=== PATIENT | male | born 2005 | race Caucasian/White ===

== ENCOUNTER 2024-12-13 11:59 | Outpatient (CLI) | payer BC, SELFPAY | END 2024-12-13 12:00 | disposition home or self-care (01) | LOC: AMB 12-15 12:28 | PROVIDERS: Visit Provider Family Medicine | DX: R45.851 Suicidal ideations (principal) | CPT/HCPCS: A0998 ==

== ENCOUNTER 2024-12-13 12:34 | Emergency (ER) | payer BC, SELFPAY ==
[2024-12-13 13:06] VITALS: BP 140/93; PULSE 135; RESP 16; TEMP 36.3; O2SAT 97; BMI 21.9
--- NOTE | 2024-12-13 13:45 | ED_ITS ---
HPI - General Adult General Chief complaint: Psychiatric Problem/Disorder <Gabi Hanna MD - Last Filed: 12/13/24 15:40> Stated complaint: Suicidal Ideation <Gabi Hanna MD - Last Filed: 12/13/24 15:40> Time Seen by Provider: 12/13/24 12:44 <Gabi Hanna MD - Last Filed: 12/13/24 15:40> Source: patient <Gabi Hanna MD - Last Filed: 12/13/24 15:40> Mode of arrival: ambulatory <Gabi Hanna MD - Last Filed: 12/13/24 15:40> Limitations: no limitations <Gabi Hanna MD - Last Filed: 12/13/24 15:40> History of Present Illness HPI narrative: 19-year-old male, history of anxiety, depression, PTSD, bipolar disorder presents to the ER with increasing depression, hopelessness and self-injurious behavior. Patient states that he grabbed some broken pottery and cut his arm and his flank. Patient states that he was having thoughts of suicide this morning, did not have a plan. Cutting himself was not an attempted suicide- while he was contemplating suicide, he knew that of scratches he sustained today would not be fatal. He has never had attempted suicide in the past. He does see a therapist once per week. He is on lamotrigine and Seroquel daily. Dose of lamotrigine was increased recently from 100 to 150 mg daily. He denies any recent new life stressors or events. States that he has been sleeping well, denies changes to his appetite. He denies any recreational drug use or alcohol use. Patient is not believe that he needs to be admitted for care but does seek extra help today. Patient does have a history of inpatient hospitalization x1 during COVID pandemic where he was in the ER for extended amount of time. This was a very traumatic experience for him. <Gabi Hanna MD - Last Filed: 12/13/24 15:40> Related Data Home medications: Home Medications ?Medication ?Instructions ?Recorded ?Confirmed diphenhydramine HCl 50 mg capsule 50 mg PO QHS PRN 12/13/24 12/13/24 (Unisom SleepGels) fexofenadine 180 mg tablet 180 mg PO DAILY 12/13/24 12/13/24 (Kathie Hives) fluticasone propionate 50 1 spray intranasal DAILY PRN 12/13/24 12/13/24 mcg/actuation nasal spray,suspension (24 Hour Allergy Relief) lamotrigine 150 mg tablet 150 mg PO DAILY 12/13/24 12/13/24 (Lamictal) pantoprazole 40 mg tablet,delayed 40 mg PO BID 12/13/24 12/13/24 release quetiapine 400 mg tablet,extended 400 mg PO QPM 12/13/24 12/13/24 release 24 hr (Seroquel XR) <Gabi Hanna MD - Last Filed: 12/13/24 15:40> Allergies/adverse reactions: Allergies Allergy/AdvReac Type Severity Reaction Status Date / Time Penicillins Allergy Mild Hives Verified 12/13/24 12:52 <Gabi Hanna MD - Last Filed: 12/13/24 15:40> Review of Systems Status of ROS: Reports: 10 or more systems reviewed and unremarkable except as noted in History and below <Gabi Hanna MD - Last Filed: 12/13/24 15:40> Exam Narrative: Exam Narrative: Well-nourished well-developed patient in no acute distress. Alert and oriented x3. Answers questions appropriately. Flat affect. Thoughts are goal oriented and rational. No tangential or magical thinking noted. Patient speaks in full sentences without needing to catch his breath. Makes little eye contact. HEENT: Normocephalic atraumatic. Pupils are equally round reactive to light. Extraocular muscles are intact. Conjunctivae are moist without any icterus noted. Moist mucous membranes. Cardiovascular: Heart is regular rate and rhythm S1 and S2 are present without any murmurs. Lungs: Clear to auscultation bilaterally no wheezes rhonchi or rales are appreciated. Patient takes deep breaths without any discomfort. Extremities: Bilateral lower extremities are without edema. Skin: Well perfused without any obvious rashes. Patient has multiple very superficial scratches to the anterior left forearm and the flank area. <Gabi Hanna MD - Last Filed: 12/13/24 15:40> Const: Vital Signs, click to edit/add: Vital Signs - 24 hr 12/13/24 13:06 12/13/24 18:38 Temperature 97.4 F L 98.1 F Pulse Rate [Pulse Oximeter] 135 H 119 H Respiratory Rate 16 18 Blood Pressure [Ri ght Upper Arm] 140/93 H 142/103 H Pulse Oximetry 97 99 Oxygen Delivery Me thod Room Air Room Air <Gabi Hanna MD - Last Filed: 12/13/24 15:40> Vital Signs, click to edit/add: Vital Signs - 24 hr 12/13/24 13:06 12/13/24 18:38 Temperature 97.4 F L 98.1 F Pulse Rate [Pulse Oximeter] 135 H 119 H Respiratory Rate 16 18 Blood Pressure [Ri ght Upper Arm] 140/93 H 142/103 H Pulse Oximetry 97 99 Oxygen Delivery Me thod Room Air Room Air <Umberto Ortiz DO - Last Filed: 12/13/24 18:42> Course Course ED Course: Blood work is unremarkable. Urine drug screen positive for tricyclic antidepressants. UA is unremarkable. Spoke to Dr. Fraire - school bus monitor [place] [facility] - she states that the patient was last seen a couple of weeks ago, next appo intment 12/25 with psychSully Montano is very concerned that the patient is very depressed and slow to answer/withdrawn. Dusty recommends inpatient as patient told them that his scratches today were a suicide attempt. <Gabi Hanna MD - Last Filed: 12/13/24 15:40> Vital Signs Vital signs: Initial Vital Signs Temperature 97.4 F L 12/13/24 13:06 Temperature Source Temporal Artery Scan 12/13/24 13:06 Pulse Rate 135 H 12/13/24 13:06 Respiratory Rate 16 12/13/24 13:06 Blood Pressure 140/93 H 12/13/24 13:06 Blood Pressure Mean 108 H 12/13/24 13:06 Blood Pressure Position Sitting 12/13/24 13:06 Pulse Oximetry 97 12/13/24 13:06 Oxygen Delivery Method Room Air 12/13/24 13:06 Vital Signs Temperature 97.4 F L 12/13/24 13:06 Pulse Rate 135 H 12/13/24 13:06 Respiratory Rate 16 12/13/24 13:06 Blood Pressure 140/93 H 12/13/24 13:06 Pulse Oximetry 97 12/13/24 13:06 Oxygen Delivery Method Room Air 12/13/24 13:06 Temperature 98.1 F 12/13/24 18:38 Pulse Rate 119 H 12/13/24 18:38 Respiratory Rate 18 12/13/24 18:38 Blood Pressure 142/103 H 12/13/24 18:38 Pulse Oximetry 99 12/13/24 18:38 Oxygen Delivery Method Room Air 12/13/24 18:38 <Gabi Hanna MD - Last Filed: 12/13/24 15:40> Initial Vital Signs Temperature 97.4 F L 12/13/24 13:06 Temperature Source Temporal Artery Scan 12/13/24 13:06 Pulse Rate 135 H 12/13/24 13:06 Respiratory Rate 16 12/13/24 13:06 Blood Pressure 140/93 H 12/13/24 13:06 Blood Pressure Mean 108 H 12/13/24 13:06 Blood Pressure Position Sitting 12/13/24 13:06 Pulse Oximetry 97 12/13/24 13:06 Oxygen Delivery Method Room Air 12/13/24 13:06 Vital Signs Temperature 97.4 F L 12/13/24 13:06 Pulse Rate 135 H 12/13/24 13:06 Respiratory Rate 16 12/13/24 13:06 Blood Pressure 140/93 H 12/13/24 13:06 Pulse Oximetry 97 12/13/24 13:06 Oxygen Delivery Method Room Air 12/13/24 13:06 Temperature 98.1 F 12/13/24 18:38 Pulse Rate 119 H 12/13/24 18:38 Respiratory Rate 18 12/13/24 18:38 Blood Pressure 142/103 H 12/13/24 18:38 Pulse Oximetry 99 12/13/24 18:38 Oxygen Delivery Method Room Air 12/13/24 18:38 <Umberto Ortiz DO - Last Filed: 12/13/24 18:42> Medical Decision Making MDM Narrative Medical decision making narrative: 19-year-old male with increased depression, bipolar disorder. Concerns about suicidal ideation and self-injurious behavior. Patient will be transferred to inpatient psychiatry unit. <Gabi Hanna MD - Last Filed: 12/13/24 15:40> patient was signed out to me pending placement in a mental health facility. He is accepted to [facility]. Him and his family are agreeable to this plan. He will be transferred. <Umberto Ortiz DO - Last Filed: 12/13/24 18:42> Lab Data Lab results reviewed: Yes I reviewed the patient's lab results <Gabi Hanna MD - Last Filed: 12/13/24 15:40> Labs: Lab Results 12/13/24 12/13/24 Range/Units 13:38 14:20 WBC 6.18 (4.50-11.00) K/uL RBC 5.28 (4.30-5.90) m/uL Hgb 16.0 (13.5-17.5) gm/dL Hct 46.5 (37.0-53.0) % MCV 88 (80-100) fL MCH 30 (26-34) pg MCHC 34 (32-36) gm/dL RDW Coeff of Melissa 11.4 L (11.5-15.5) % Plt Count 199 (140-440) K/uL Neut % (Auto) 66.6 (42.0-72.0) % Lymph % (Auto) 21.5 (20-44) % Beaver % (Auto) 11.0 (0.0-11.0) % Eos % (Auto) 0.5 (0.0-7.0) % Baso % (Auto) 0.2 (0.0-3.0) % Neut # (Auto) 4.12 (1.7-7.0) K/uL Lymph # (Auto) 1.33 (0.90-2.90) K/uL Beaver # (Auto) 0.70 (0.00-0.90) K/UL Eos # (Auto) 0.03 (0.00-0.50) K/uL Baso # (Auto) 0.01 (0.00-0.30) K/uL Abs Immat Gran (auto) 0.01 (0.00-0.30) K/uL Imm/Tot Granulo (auto) 0.2 % Sodium 139 (135-149) mmol/L Potassium 4.2 (3.6-5.1) mmol/L Chloride 104 (96-114) mmol/L Carbon Dioxide 25 (20-32) mmol/L Anion Gap 10 (7-15) mEq/L BUN 15 (5-24) mg/dL Creatinine 0.8 (0.5-1.5) mg/dL Estimated Creat Clear 147.31 Estimated GFR 129 ml/min Glucose 99 (60-115) mg/dL Lactate 0.8 (0.5-1.9) mmol/L Calcium 9.4 (8.4-10.6) mg/dL Total Bilirubin 0.8 (0.1-1.5) mg/dL Direct Bilirubin 0.3 (0.0-0.5) mg/dL AST 26 (12-35) U/L ALT 21 (4-50) U/L Alkaline Phosphatase 64 (40-150) U/L Total Protein 7.9 (6.0-8.3) g/dL Albumin 4.9 (3.3-5.0) g/dL Urine Color Yellow (Yellow) Urine Appearance Slightly Cloudy A (Clear) Urine pH 6.0 (5.0-8.5) Ur Specific Eighty Eight >= 1.030 (1.000-1.030) Urine Protein Trace A (Negative) Urine Glucose (UA) Negative (Negative) Urine Ketones Negative (Negative) Urine Blood Negative (Negative) Urine Nitrite Negative (Negative) Urine Bilirubin Negative (Negative) Urine Urobilinogen 0.2 (0.2-1.0) Ur Leukocyte Esterase Negative (Negative) Urine RBC 0-2 (0-2) Urine WBC 0-2 (0-5) Ur Squamous Epith Cells Few (None-Few) Urine Bacteria Few A (None) Urine Mucus Many A (None) Salicylates < 1.0 L (1.0-10) mg/dL Urine Opiates Screen Negative (Negative) Ur Oxycodone Screen Negative (Negative) Urine Methadone Screen Negative (Negative) Acetaminophen < 10.0 (10.0-30.0) ug/mL Ur Barbiturates Screen Negative (Negative) U Tricyclic Antidepress POSITIVE A (Negative) Ur Phencyclidine Scrn Negative (Negative) Ur Amphetamines Screen Negative (Negative) U Methamphetamines Scrn Negative (Negative) U Benzodiazepines Scrn Negative (Negative) Urine Cocaine Screen Negative (Negative) U Marijuana (THC) Screen Negative (Negative) Ur Drug Screen Comment See Note Ethyl Alcohol < 0.01 (0.01-0.03) % <Gabi Hanna MD - Last Filed: 12/13/24 15:40> Lab Results 12/13/24 12/13/24 Range/Units 13:38 14:20 WBC 6.18 (4.50-11.00) K/uL RBC 5.28 (4.30-5.90) m/uL Hgb 16.0 (13.5-17.5) gm/dL Hct 46.5 (37.0-53.0) % MCV 88 (80-100) fL MCH 30 (26-34) pg MCHC 34 (32-36) gm/dL RDW Coeff of Melissa 11.4 L (11.5-15.5) % Plt Count 199 (140-440) K/uL Neut % (Auto) 66.6 (42.0-72.0) % Lymph % (Auto) 21.5 (20-44) % Beaver % (Auto) 11.0 (0.0-11.0) % Eos % (Auto) 0.5 (0.0-7.0) % Baso % (Auto) 0.2 (0.0-3.0) % Neut # (Auto) 4.12 (1.7-7.0) K/uL Lymph # (Auto) 1.33 (0.90-2.90) K/uL Beaver # (Auto) 0.70 (0.00-0.90) K/UL Eos # (Auto) 0.03 (0.00-0.50) K/uL Baso # (Auto) 0.01 (0.00-0.30) K/uL Abs Immat Gran (auto) 0.01 (0.00-0.30) K/uL Imm/Tot Granulo (auto) 0.2 % Sodium 139 (135-149) mmol/L Potassium 4.2 (3.6-5.1) mmol/L Chloride 104 (96-114) mmol/L Carbon Dioxide 25 (20-32) mmol/L Anion Gap 10 (7-15) mEq/L BUN 15 (5-24) mg/dL Creatinine 0.8 (0.5-1.5) mg/dL Estimated Creat Clear 147.31 Estimated GFR 129 ml/min Glucose 99 (60-115) mg/dL Lactate 0.8 (0.5-1.9) mmol/L Calcium 9.4 (8.4-10.6) mg/dL Total Bilirubin 0.8 (0.1-1.5) mg/dL Direct Bilirubin 0.3 (0.0-0.5) mg/dL AST 26 (12-35) U/L ALT 21 (4-50) U/L Alkaline Phosphatase 64 (40-150) U/L Total Protein 7.9 (6.0-8.3) g/dL Albumin 4.9 (3.3-5.0) g/dL Urine Color Yellow (Yellow) Urine Appearance Slightly Cloudy A (Clear) Urine pH 6.0 (5.0-8.5) Ur Specific Eighty Eight >= 1.030 (1.000-1.030) Urine Protein Trace A (Negative) Urine Glucose (UA) Negative (Negative) Urine Ketones Negative (Negative) Urine Blood Negative (Negative) Urine Nitrite Negative (Negative) Urine Bilirubin Negative (Negative) Urine Urobilinogen 0.2 (0.2-1.0) Ur Leukocyte Esterase Negative (Negative) Urine RBC 0-2 (0-2) Urine WBC 0-2 (0-5) Ur Squamous Epith Cells Few (None-Few) Urine Bacteria Few A (None) Urine Mucus Many A (None) Salicylates < 1.0 L (1.0-10) mg/dL Urine Opiates Screen Negative (Negative) Ur Oxycodone Screen Negative (Negative) Urine Methadone Screen Negative (Negative) Acetaminophen < 10.0 (10.0-30.0) ug/mL Ur Barbiturates Screen Negative (Negative) U Tricyclic Antidepress POSITIVE A (Negative) Ur Phencyclidine Scrn Negative (Negative) Ur Amphetamines Screen Negative (Negative) U Methamphetamines Scrn Negative (Negative) U Benzodiazepines Scrn Negative (Negative) Urine Cocaine Screen Negative (Negative) U Marijuana (THC) Screen Negative (Negative) Ur Drug Screen Comment See Note Ethyl Alcohol < 0.01 (0.01-0.03) % <Umberto Ortiz DO - Last Filed: 12/13/24 18:42> Discharge Plan Discharge Clinical Impression: Depression, Suicidal thoughts, Self-injurious behavior <Gabi Hanna MD - Last Filed: 12/13/24 15:40> Patient Disposition: Xfer Other <Gabi Hanna MD - Last Filed: 12/13/24 15:40> Condition: Stable <Gabi Hanna MD - Last Filed: 12/13/24 15:40> Prescriptions: No Action quetiapine [Seroquel XR] 400 mg tablet extended release 24 hr 400 mg PO QPM lamotrigine [Lamictal] 150 mg tablet 150 mg PO DAILY fluticasone propionate [24 Hour Allergy Relief] 50 mcg/actuation spray,suspension 1 spray intranasal DAILY PRN Rx Instructions: administer into each nostril fexofenadine [Kathie Hives] 180 mg tablet 180 mg PO DAILY pantoprazole 40 mg tablet,delayed release (DR/EC) 40 mg PO BID diphenhydramine HCl [Unisom SleepGels] 50 mg capsule 50 mg PO QHS PRN <Gabi Hanna MD - Last Filed: 12/13/24 15:40> Stand Alone Forms: [facility] Info Instructions <Gabi Hanna MD - Last Filed: 12/13/24 15:40>
[2024-12-13 14:03] LABS: Amphetamine Screen Urine Negative (Negative); Barbiturate Screen Urine Negative (Negative); Benzodiazepines Screen Urine Negative (Negative); Cannabinoid Screen Urine Negative (Negative); Cocaine Screen Urine Negative (Negative); Methadone Screen Urine Negative (Negative); Methamphetamines Screen Urine Negative (Negative); Opiate Screen Urine Negative (Negative); Oxycodone Screen Urine Negative (Negative); Phencyclidine Screen Urine Negative (Negative); Tricyclic Antidepressant Urine POSITIVE (Negative)
[2024-12-13 14:17] LABS: Appearance Urine Slightly Cloudy (Clear); Bilirubin Urine Negative (Negative); Blood Urine Negative (Negative); Color Urine Yellow (Yellow); Glucose Urine Negative (Negative); Ketones Urine Negative (Negative); Leukocyte Esterase Urine Negative (Negative); Nitrite Urine Negative (Negative); Protein Urine Trace (Negative); Specific Gravity Urine >= 1.030 (1.000-1.030); Urobilinogen Urine 0.2 (0.2-1.0)
[2024-12-13 14:21] LABS: Bacteria Urine Few; RBC Urine 0-2 (0-2); Squamous Epithelial Cell Urine Few (None-Few); WBC Urine 0-2 (0-5)
[2024-12-13 14:22] LABS: Mucus Urine Many
[2024-12-13 14:25] LABS: Basophils Absolute Auto 0.01 K/uL (0.00-0.30); Basophils Percent Auto 0.2 % (0.0-3.0); Eosinophils Absolute Auto 0.03 K/uL (0.00-0.50); Eosinophils Percent Auto 0.5 % (0.0-7.0); Hematocrit 46.5 % (37.0-53.0); Immature Granulocytes Abs Auto 0.01 K/uL (0.00-0.30); Immature Granulocytes Pct Auto 0.2 %; Lymphocytes Absolute Auto 1.33 K/uL (0.90-2.90); Lymphocytes Percent Auto 21.5 % (20-44); Mean Corpuscular HGB Conc 34 gm/dL (32-36); Mean Corpuscular Hemoglobin 30 pg (26-34); Mean Corpuscular Volume 88 fL (80-100); Neutrophils Absolute Auto 4.12 K/uL (1.7-7.0); Neutrophils Percent Auto 66.6 % (42.0-72.0); Platelet Count* 199 K/uL (140-440); RDW Coefficient of Variation % 11.4 % (11.5-15.5); Red Blood Count 5.28 m/uL (4.30-5.90); White Blood Count* 6.18 K/uL (4.50-11.00)
[2024-12-13 14:27] LABS: Lactate* 0.8 mmol/L (0.5-1.9)
[2024-12-13 14:34] LABS: Slide Review Reflex No
[2024-12-13 15:22] LABS: Albumin* 4.9 g/dL (3.3-5.0); Chloride* 104 mmol/L (96-114); Potassium* 4.2 mmol/L (3.6-5.1); Sodium* 139 mmol/L (135-149)
[2024-12-13 15:24] LABS: Blood Urea Nitrogen* 15 mg/dL (5-24); Creatinine* 0.8 mg/dL (0.5-1.5); Est. Creatinine Clearance* 147.31; Estimated Glomerular Filt Rate 129 ml/min
[2024-12-13 15:25] LABS: Alanine Aminotransferase* 21 U/L (4-50); Alkaline Phosphatase* 64 U/L (40-150); Anion Gap 10 mEq/L (7-15); Aspartate Amino Transferase* 26 U/L (12-35); Bilirubin Direct* 0.3 mg/dL (0.0-0.5); Bilirubin Total* 0.8 mg/dL (0.1-1.5); Calcium* 9.4 mg/dL (8.4-10.6); Carbon Dioxide* 25 mmol/L (20-32); Glucose* 99 mg/dL (60-115); Total Protein* 7.9 g/dL (6.0-8.3)
--- OUTSIDE RECORDS SUMMARY | 2024-12-13 15:26 | XMS_ITS | Encounter Summary ---
Author Organization [facility] Address [facility] [place] [address] Care Team Providers Care Classifying Machine Operator Name Role Phone Ady Hood MD Primary Care Provider [phone] Ady Hood MD Unavailable Reason for Visit * Reason Onset Date Comments Outpatient 10/22/2020 adol Encounter Details Date Type Department Care Team ([facility] Contact Info) Description 10/22/2020 Telephone [facility] Behavioral Health Intake [address] [place] [address] Generic, Behavioral IntakeMD Outpatient (adol ) Social History Tobacco Use Types Packs/Day Years Used Date Smoking Tobacco: Never Smokeless Tobacco: Never Sex and Gender Information Value Date Recorded Sex Assigned at Not on file Legal Sex Male 11:22 AM COMPANY CONTROLLER Gender Identity Not on file Sexual Orientation Not on file COVID-19 Exposure Response Date Recorded In the last month, have you been in contact with someone who was confirmed or suspected to have Coronavirus / COVID-19? No / Unsure 10/15/2020 11:52 AM COMPANY CONTROLLER documented as of this encounter Miscellaneous Notes * Telephone Encounter - Karen Prince - 10/27/2020 1:00 PM CST Pt is currently on 7A/Bryan being referred to Adolescent Intensive Outpatient Program Referral created/benashley copied forward Sent mssg to program via pool ANY CONTROLLER * Telephone Encounter - Libby Adams - 10/27/2020 11:22 AM CST ----- Message from Jonna Solomon, RN sent at 10/27/2020 11:12 AM COMPANY CONTROLLER ----- Regarding: New [facility] IOP patient to be scheduled Patient Name: ??Ha Jean Location of programming: [facility] Adol Beh IOP Start Date: 11/08/20 Group: ([id number] Mon/Sun/ 3:15p-5:15p Provider: (name of MD): Melba Rajput Number of visits to be scheduled: 18 Length/Duration of Appointment in minutes: 150 Visit Type (VIDEO/TELEPHONE/IN-PERSON): Video via zoom (scheduled via [facility]) Additional notes: Intake appointment on 11/04- Sara Navarro Medication check on 11/04- Melba Rajput ANY CONTROLLER * Telephone Encounter - Jack Grissom - 10/22/2020 3:03 PM CST Pt was admitted to [id number] Ref to Mental Health Services Options: Adolescent Partial Outpatient Program Was CD Consult Assessment Completed: Naveen Canales MD ANY CONTROLLER documented in this encounter Plan of Treatment Not on file documented as of this encounter Visit Diagnoses Not on filedocumented in this encounter Care Teams Classifying Machine Operator Relationship Specialty Start Date End Date Ady Hood MD PCP - General Pediatrics 10/15/20 Ady Hood MD [address] [place] [address] Assigned PCP 02/16/21 05/25/24 documented as of this encounter
--- OUTSIDE RECORDS SUMMARY | 2024-12-13 15:26 | XMS_ITS | Clinical Summary ---
Author Organization [facility] Address [address] [facility] [place] [address] Care Team Providers Care Lockstitch Pocket Setter Name Role Phone Ady Hood MD Primary Care Provider [phone] Allergies Active Allergy Reactions Criticality Noted Date Comments Latex Hives Medium 10/15/2020 Liquid Adhesive Rash Low 05/01/2013 Penicillins Hives Medium 05/31/2010 Medications rizatriptan (MAXALT) 10 MG tablet Take 10 mg by mouth at onset of headache for migraine (Maximum of 3 tablets per week) Active clindamycin (CLEOCIN T) 1 % external lotion Apply 1 mL topically every morning Active tazarotene (TAZORAC) 0.1 % external cream Apply 1 Application topically At Bedtime Active melatonin 3-10 MG TABS Take 3 mg by mouth nightly as needed Active QUEtiapine ER (SEROQUEL XR) 400 MG 24 hr tabletIndicatio ns:Manic behavior (H) Take 1 tablet (400 mg) by mouth At Bedtime 30 tablet Active fexofenadine (DEVON) 60 MG tablet Take 60 mg by mouth Active Active Problems Problem Noted Date Diagnosed Date Bipolar I disorder 04/11/2021 Manic behavior 10/18/2020 Encounters Date Type Department Care Team Description 10/24/2024 Telephone [facility] [address] [place] [address] Ady Hood MD Pt. Information/instruction from Last 3 Months Immunizations Name Administration Dates Next Due COVID-19 MONOVALENT 12+ (Pfizer) 03/04/2021,02/01 DTAP (<7y) 07/06/2008, 4,2003,08/17,2003 DTaP, Unspecified 07/06/2008, 4,2003,08/17,2003 Flu, Unspecified 06/22/2007,06/23/2006, 4 Flu-nasal, Unspecified 06/13/2011,05/25/2009 [id number] Novel Flu- Nasal 08/11/2009 HIB(PRP-OMP)(PedvaxHIB) 07/20/2004,2003, HIB, Unspecified 07/20/2004,2003, 3 HPV Quadrivalent 05/18/2014 HPV9 (Gardasil) 10/12/2017 HepA, Unspecified 07/06/2008,05/17/2007 HepB, Unspecified 07/20/2004,2003,06/15/20 03 Hepatitis A (VAQTA)(ADULT 19+) 07/06/2008,2006 Hepatitis B, Adult (Energix-B/Recombivax HB) 07/20/2004,2003,2003 Influenza (H1N1) 09/22/2009 Influenza (IIV3) PF 06/22/2007,06/23/2006,2004 Influenza (prior to 2023) 06/29/2004 Influenza Intranasal Vaccine 06/26/2012, 06/13/2011,05/25/2009,07/20 Influenza Vaccine >6 months,quad, PF 06/23/2006, 06/29/2004 Influenza Vaccine, 6+MO IM (QUADRIVALENT W/PRESERVATIVES) 06/27/2019,10/12/2017 MMR (MMRII) 07/06/2008,05/16/2004 Meningococcal ACWY (Menactra ) 04/11/2021,05/18/2014 Meningococcal ACWY (Menveo ) 05/18/2014 Meningococcal B (Bexsero ) 08/08/2021,04/11/2021 Nasal Influenza Vaccine 2-49 (FluMist) 0 05/18/2020,07/03/2018,06/25/2015,05/18 Pneumococcal (PCV 7) 07/20/2004,10/29/19 04,2003,06/15 Poliovirus, inactivated (IPV) 05/17/2007 ,2003,2003,06/15 TDAP (Adacel,Boostrix) 05/18/2014 Varicella (Varivax) 07/06/2008,02/09/2005 Family History Medical History Relation Comments Melanoma Other grandparent Relation Status Comments Other Social History Tobacco Use Types Packs/Day Years Used Date Smoking Tobacco: Never Smokeless Tobacco: Never PHQ-2 Answer Date Recorded PHQ-2 Score 0 12/16/2020 Exercise Vital Sign Answer Date Recorde d On average, how many days pe r week do you engage in moderate to strenuous exercise (like a brisk walk)? 6 days 04/10/2021 On average, how many minutes do you engage in exercise at this level? 30 min 04/10/2021 Hunger Vital Sign Answer Date Recorded Within the past 12 months, y ou worried that your food would run out before you got the money to buy more. Never true 04/10/20 21 Within the past 12 months, t he food you bought just didn't last and you didn't have money to get more. Never true 04/10/2021 PRAPARE - Transportation Answer Date Re corded In the past 12 months, has l ack of transportation kept you from medical appointments or from getting medications? No 04/10/2021 Lack of Transportation (Non-Medical) Not on file 04/10/2021 Housing Stability Vital Sign Answer Krish e Recorded In the last 12 months, was t here a time when you were not able to pay the mortgage or rent on time? No 04/10/2021 Number of Places Lived in the Last Year Not on f ile 04/10/2021 In the last 12 months, was t here a time when you did not have a steady place to sleep or slept in a residential (including now)? No 04/10/2021 Adolescent Education Answer Date Record ed Getting School Help Needed Not on file 05/26 Sex and Gender Information Value Date Recorded Sex Assigned at Not on file Legal Sex Male 11:22 AM BAR STAFF Gender Identity Not on file Sexual Orientation Not on file Last Filed Vital Signs Vital Sign Reading Time Taken Comments Blood Pressure 113/78 04/11/2021 8:43 AM CDT Pulse 100 04/11/2021 8:43 AM CDT Temperature 36.8 C (98.2 F) 10/28/2020 8:24 AM BAR STAFF Respiratory Rate 16 10/28/2020 8:24 AM BAR STAFF Oxygen Saturation 99% 04/11/2021 8:43 AM CDT Inhaled Oxygen Concentration - - Weight 58.1 kg (128 lb) 04/11/2021 8:43 AM CDT Height 181.6 cm (5' 11.5) 04/11/2021 8:43 AM CD T Body Mass Index 17.6 04/11/2021 8:43 AM CDT Plan of Treatment Health Maintenance Due Date Last Done Comments ADVANCE CARE PLANNING 2003 ANNUAL REVIEW OF HM ORDERS 2003 HIV SCREENING 2018 HEPATITIS C SCREENING 2021 YEARLY PREVENTIVE VISIT 04/11/2022 04/11/20 21, 06/03/2018, 06/03/2018, Additional history exists COVID-19 Vaccine ( season) 2024 03/04/2021, 02/11/2021 INFLUENZA VACCINE (#1) 2024 , 05/18/2020, 05/18/2020, Additional history exists DTAP/TDAP/TD IMMUNIZATION (7 - Td or Tdap) 05/18/2024 05/18/2014, 05/18/2014, 07/06/2008, Additional history exists PHQ-2 (once per calendar year) 2024 12/16/2020, 12/09/2020, 12/02/2020, Additional history exists ZOSTER IMMUNIZATION (1 of 2) 2053 HEPATITIS B IMMUNIZATION Completed 004, 07/20/2004, 2003, Additional history exists Pneumococcal Vaccine: Pediatrics (0 to 5 Years) and At-Risk Patients (6 to 49 Years) Aged Out 07/20/2004, 2003, 2003, Additional history exists No longer eligible based on patient's age to complete this topic HPV IMMUNIZATION Completed 10/12/2017, , 05/18/2014 MENINGITIS IMMUNIZATION Completed 04/11/20 21, 05/18/2014, 05/18/2014 MENINGITIS B IMMUNIZATION Completed 08/08/2021, 05/2021 Insurance [employer] Advance Directives For more information, please contact: [phone] * Full Code (Latest Code Status on File) Date Activated Date Inactivated Comments 10/26/2020 9:22 AM 10/28/2020 6:39 PM All basic an d advanced life-sustaining interventions are performed as appropriate Question Answer Comments Code status determined by: Discussion with patie nt/ legal decision maker * Full Code Date Activated Date Inactivated Comments 10/21/2020 9:50 AM 10/26/2020 9:22 AM All basic an d advanced life-sustaining interventions are performed as appropriate Question Answer Comments Code status determined by: Unable to det ermine; FULL CODE until documents or legal decision maker available * Full Code Date Activated Date Inactivated Comments 10/18/2020 8:58 PM 10/21/2020 9:50 AM All basic an d advanced life-sustaining interventions are performed as appropriate Question Answer Comments Code status determined by: Unable to det ermine; FULL CODE until documents or legal decision maker available Care Teams Lockstitch Pocket Setter Relationship Specialty Start Date End Date Ady Hood MD PCP - General Pediatrics 10/15/20
--- OUTSIDE RECORDS SUMMARY | 2024-12-13 15:26 | XMS_ITS | Encounter Summary ---
Author Organization [facility] Address [address] [place] [address] Phone Care Team Providers Care Honey Extractor Name Role Phone Ene Mariscal DO Unavailable [phone] Dougie Veras MD Primary Care Provider Encounter Details Date Type Department Care Team (Late st Contact Info) Description 10/06/2024 Telephone [facility] [place] [address] [place], [place] [id number] Gordon Russo, RN [facility] [address] [place] [address] Social History Tobacco Use Types Packs/Day Years Used Date Smoking Tobacco: Never Smokeless Tobacco: Never Alcohol Use Standard Drinks/Week Comments Never 0 (1 standard drink = 0.6 oz pur e alcohol) PHQ-2 Answer Date Recorded PHQ-2 Subtotal 4 10/28/2024 Hunger Vital Sign Answer Date Recorded Within the past 12 months, y ou worried that your food would run out before you got the money to buy more. Never true 02/15/20 24 Within the past 12 months, t he food you bought just didn't last and you didn't have money to get more. Never true 02/15/2024 Sex and Gender Information Value Date Recorded Sex Assigned at Male 04/19/2021 8:44 AM CDT Legal Sex Male 12:24 PM CDT Gender Identity Male 04/19/2021 8:44 AM CDT Sexual Orientation Bisexual 07/12/2024 9: 36 AM BUG TRIMMER Sexual Orientation Pansexual 07/12/2024 9: 36 AM BUG TRIMMER documented as of this encounter Miscellaneous Notes * Telephone Encounter - Gordon Russo RN - 10/06/2024 9:28 AM BUG TRIMMER Called client's mother Jodie and she had concerns regarding clients mood cycling. She explains that client started Zoloft July 03 and that he has had significant periods of fatigue, decreased motivation, and hopelessness. Client experienced these symptoms July 17, August 09, September 05 to , and October 03 and now. Client does have stressors going on as he is trying to complete his college degree and this is his last year. Client does see a therapist and she will talk to the clients about signing a release of informationso we can coordinate care with the therapist as these depressive episodes could be related to a psychostressors. Client canceled the appointment with Dr. Mariscal on October 03 as he was going through the symptoms and is rescheduled for October 09 and mother hopes to attend that appointment. 10/09/2024 11:20 AM Ene Mariscal, DO [facility] Arrive at: Video Visit [phone] [facility] She reports that client does not use drugs or alcohol, takes medications as prescribed, and as far she knows is not experiencing any sleep issues. She is unsure if the Zoloft should be discontinued or increased or if his symptoms are related to his stressors as he does feel overwhelmed and hopeless at times regarding college and his mental health. She wanted to update Dr. Mariscal. MEERA Johnson TRIMMER * Telephone Encounter - Gordon Russo RN - 10/06/2024 8:51 AM BUG TRIMMER ----- Message from Sara Teresa sent at 10/06/2024 8:14 AM BUG TRIMMER ----- TELEPHONE MESSAGE Taken by: Sara Amador, 10/06/2024 8:15 AM Direct to: Jose Roger Problem: Patient's Mom Jodie called. Said she has a lot of information to share about her son, the patient. Said there is a long time line. Pt. Name: Ha Jean : 2005 (home) Mobile Insurance: PCP: Dougie Veras MD Comment: Expects Return Call at: Jodie is at [phone] TRIMMER documented in this encounter Plan of Treatment Upcoming Encounters Date Type Department Care Team (Late st Contact Info) Description 12/25/2024 11:20 AM CDT Telemedicine [facility] [place] [address] [place] [address] Ene Mariscal DO [address] [place] [id number] Scheduled Discharge Disposition: Discharged to home or self care documented as of this encounter Visit Diagnoses Not on filedocumented in this encounter Additional Health Concerns Assessment Noted Time PHQ-9 Depression Total Score: 0 03/20/20 8:48 AM CDT PHQ-2 Depression Total Score: 0 03/20/20 8:48 AM CDT documented as of this encounter Care Teams Honey Extractor Relationship Specialty Start Date End Date Dougie Veras MD [address] [place] [address] PCP - General Internal Medicine 07/31/22 Ene Mariscal DO [address] [place] [id number] Psychiatrist Outpatient Psychiatry 04/20/21 documented as of this encounter
--- OUTSIDE RECORDS SUMMARY | 2024-12-13 15:26 | XMS_ITS | Encounter Summary ---
Author Organization [facility] Address [facility] [place] [address] Care Team Providers Care Data Center Engineer Name Role Phone Ady Hood MD Primary Care Provider [phone] Ady Hood MD Unavailable Encounter Details Date Type Department Care Team (Late st Contact Info) Description 06/25/2015 Records - [facility] CONVERSION Scan, Non-Provider Social History Tobacco Use Types Packs/Day Years Used Date Smoking Tobacco: Never Assessed Sex and Gender Information Value Date Recorded Sex Assigned at Not on file Legal Sex Male 11:22 AM PATROL CAPTAIN Gender Identity Not on file Sexual Orientation Not on file documented as of this encounter Plan of Treatment Not on file documented as of this encounter Visit Diagnoses Not on filedocumented in this encounter Care Teams Data Center Engineer Relationship Specialty Start Date End Date Ady Hood MD PCP - General Pediatrics 10/15/20 Ady Hood MD [address] [place] [address] Assigned PCP 02/16/21 05/25/24 documented as of this encounter
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
--- OUTSIDE RECORDS SUMMARY | 2024-12-13 15:26 | XMS_ITS | Referral Summary ---
Author Organization [facility] Address [address] [place] [address] Phone Care Team Providers Care Networking Technology Instructor Name Role Phone Ene Mariscal DO Unavailable [phone] Dougie Veras MD Primary Care Provider Source Comments [employer] is fully rolled out on [facility]. Last update 02/05/09.[facility] Encounters Date Type Department Care Team Description 12/13/2024 Documentation Only PSYCHIATRY SERVICE [address] [place] [address] Adele Fraire MD 11/20/2024 8:00 AM CDT Telemedicine [facility] [place] [address] [place] [address] Ene Mariscal DO Bipolar 1 disorder, depressed, severe (CMS/HHS) (Primary Dx); Generalized anxiety disorder; High risk medication use Discharge Disposition: Discharged to home or self care 11/10/2024 Telephone [facility] [place] [address] [place] [address] Ute Jama RN 11/08/2024 Telephone [facility] [place] [address] [place] [address] Clint Moeller MD 11/06/2024 11:00 AM CATERPILLAR OPERATOR Telemedicine [facility] Psychiatry [facility] [address] [place] [address] Ene Mariscal DO High risk medication use (Primary Dx); Bipolar 1 disorder, depressed, severe (CMS/HHS); Generalized anxiety disorder Discharge Disposition: Discharged to home or self care 10/28/2024 9:20 AM CATERPILLAR OPERATOR Telemedicine [facility] Psychiatry [facility] [address] [place] [address] Nicole Amador MD Bipolar 1 disorder, depressed, severe (CMS/HHS) (Primary Dx); Generalized anxiety disorder Discharge Disposition: Discharged to home or self care 10/23/2024 Telephone [facility] Psychiatry [facility] [address] [place] [address] Adele Acuna V tax processor Problem 10/23/2024 10:00 AM [facility] Telemedicine [facility] Psychiatry [facility] [address] [place] [address] Ene Mariscal, Generalized anxiety disorder (Primary Dx); Bipolar 1 disorder, depressed, severe (CMS/HHS); High risk medication use Discharge Disposition: Discharged to home or self care 10/21/2024 Telephone [facility] Psychiatry [facility] [address] [place] [address] Lidia Viramontes RN Patient Status Update; Care Coordination 10/09/2024 11:20 AM [facility] Telemedicine [facility] Psychiatry [facility] [address] [place] [address] Ene Mariscal DO Bipolar 1 disorder, depressed, severe (CMS/HHS) (Primary Dx); Generalized anxiety disorder; Needle phobia Discharge Disposition: Discharged to home or self care 10/06/2024 Telephone [facility] Psychiatry [facility] [address] [place] [address] Gordon Russo, BRITTNY 10/03/2024 Telephone [facility] Psychiatry [facility] [address] [place] [address] Adele Acuna RN Resources 10/03/2024 Telephone [facility] [place] [address] [place] [address] Adele Acuna RN Patient Status Update 09/18/2024 8:20 AM CATERPILLAR OPERATOR Telemedicine [facility] [place] [address] [place] [address] Ene Mariscal DO Generalized anxiety disorder (Primary Dx); High risk medication use; Bipolar 1 disorder, depressed, severe ([facility]) Discharge Disposition: Discharged to home or self care from Last 3 Months Allergies Active Allergy Reactions Criticality Noted Date Comments Penicillins Hives 08/14/2023 Trees Itching/Pruritus,Other (see comments) 03/20/2024 Medications * Be aware that medications may not be up to date as of this document. Always verify current medications with patient. pantoprazole (PROTONIX) 40 mg oral tablet Take 1 tablet (40 mg) by mouth daily. 02/18/20 24 Active QUEtiapine (SEROQUEL) 25 mg oral TABSIndicatio ns:Generalize d Anxiety Disorder Take 1 tablet (25 mg) by mouth twice daily as needed (For extreme anxiety). Indications: Generalized Anxiety Disorder 60 tablet 2 09/10/19 25 Active lamoTRIgine (LAMICTAL) 150 mg oral tablet Take 1 tablet (150 mg) by mouth daily. 60 tablet 2 11/21/19 25 Active QUEtiapine (SEROQUEL XR) 400 mg oral XR tablet Take 1 tablet (400 mg) by mouth at bedtime. 90 tablet 11/21/19 25 Active QUEtiapine (SEROQUEL XR) 400 mg oral XR tablet Take 1 tablet (400 mg) by mouth at bedtime. 90 tablet 09/10/19 25 025 Discontinued(Re order) LORazepam (ATIVAN) 0.5 mg oral tablet Take 1 tablet (0.5 mg) by mouth twice daily as needed for Anxiety. 30 tablet 2 09/10/19 25 025 Discontinued sertraline (ZOLOFT) 50 mg oral tablet Take 1 tablet (50 mg) by mouth daily. 30 tablet 1 10/09/19 25 025 Discontinued lamoTRIgine (LAMICTAL) 100 mg oral tablet Take 1 tablet (100 mg) by mouth daily. 30 tablet 2 11/11/19 25 025 Discontinued Active Problems Problem Noted Date Diagnosed Date Needle phobia 04/19/2021 Assessment & Plan (10/09/2024 1:21 PM CATERPILLAR OPERATOR): Needle phobia continues to make patient reluctant to consider taking lithium, due to the necessity of more frequent lab work although he understands it is the gold standard treatment for bipolar disorder. Assessment & Plan (08/14/2024 1:56 PM CATERPILLAR OPERATOR): Needle phobia is causing some interference with prescribing lithium, the gold standard treatment for bipolar disorder. Assessment & Plan (07/25/2024 11:52 AM CATERPILLAR OPERATOR): Zeny was initially agreeable to a trail of xanax to help with needle phobia on Sunday when we planned to do lab work. The plan was his mother would drive to appointment. Zeny does ot use alcohol and understands risks of xanax. This will now be on hold due to not starting lithium. Assessment & Plan (08/10/2021 2:41 PM CATERPILLAR OPERATOR): Did get his meningitis shot recently and handled it well. Less concerned about having to do labs in the future, but very hesitant to make a commitment for doing them in November. Assessment & Plan (06/09/2021 2:07 PM CDT): Quick to assure me he does nt need labs until summer, Assessment & Plan (04/20/2021 8:43 AM CDT): Encouraged him to keep working in therapy. We can also use ativan if necessary for lab work although this was not helpful when tried in past. High risk medication use 04/19/2021 Overview (04/20/2021): Pt has been educated about the metobolic risks of antipsychotic medications, as well as the risk of tardive dyskinesia. We will monitor labs and AIMS as per clinic protocol. Healthy life style habits have been strongly encouraged. Please see [facility] for most recent results. Assessment & Plan (11/20/2024 8:25 AM CDT): He reports no side effects from Seroquel.Continue monitoring for rash as we titrate up on Lamcital to 150 mg daily. Longer term plan is to try to minimize Seroquel if Lamictal is effective and well tolerated. Labs due again in late spring. Assessment & Plan (11/06/2024 12:00 PM CATERPILLAR OPERATOR): He reports no side effects from Seroquel.Continue monitoring for rash as we titrate up on Lamcital to 100 mg daily. Assessment & Plan (10/23/2024 12:14 PM CATERPILLAR OPERATOR): He reports no side effects from Seroquel. Reviewed symptoms of SJ rash with his mother and importance of adhering to medication. Assessment & Plan (09/18/2024 8:28 AM CATERPILLAR OPERATOR): He reports no side effects from Seroquel. Assessment & Plan (09/04/2024 8:10 AM CATERPILLAR OPERATOR): See problem focussed overview and past problem focussed plans . Weight stable.Denies side effects of medications Assessment & Plan (08/14/2024 3:24 PM CATERPILLAR OPERATOR): See problem focussed overview and past problem focussed plans . Assessment & Plan (07/25/2024 11:55 AM CATERPILLAR OPERATOR): An AIMS to monitor for tardive dyskinesia and annual labs to monitor metabolic indices because patient is at greater risk of metabolic syndrome secondary to taking a SGA, are due in summer. Recent lab work unremarkable . NO evidence of TD or EPS. Monitor closely for increase in suicidal ideation or faviola as Zoloft is continued. Discussed short term and longer term risks of lithium at length today as well. Assessment & Plan (07/15/2024 10:36 AM CATERPILLAR OPERATOR): An AIMS to monitor for tardive dyskinesia and annual labs to monitor metabolic indices because patient is at greater risk of metabolic syndrome secondary to taking a SGA, are due in summer. Recent lab work unremarkable . NOoevidence of TD or EPS. Monitor closely for increase in suicidal ideation or faviola as Zoloft is conitnued Assessment & Plan (07/08/2024 9:22 AM CATERPILLAR OPERATOR): An AIMS to monitor for tardive dyskinesia and annual labs to monitor metabolic indices because patient is at greater risk of metabolic syndrome secondary to taking a SGA, are due in summer. Recent lab work unremarkable . NO evidence of TD or EPS. Monitor closely for increase in suicidal ideation or faviola as Zoloft is coninued Assessment & Plan (07/02/2024 4:20 PM CDT): An AIMS to monitor for tardive dyskinesia and annual labs to monitor metabolic indices because patient is at greater risk of metabolic syndrome secondary to taking a SGA, are due in summer. Recent lab work unremarkable . NO evidence of TD or EPS. Monitor closely for increase in suicidal ideation or faviola as Zoloft is started Assessment & Plan (05/02/2024 11:25 AM CDT): An AIMS to monitor for tardive dyskinesia and annual labs to monitor metabolic indices because patient is at greater risk of metabolic syndrome secondary to taking a SGA, are due in summer. Recent lab work unremarkable . NO evidence of TD or EPS. Assessment & Plan (03/20/2024 1:41 PM CDT): An AIMS to monitor for tardive dyskinesia and annual labs to monitor metabolic indices because patient is at greater risk of metabolic syndrome secondary to taking a SGA, are due in summer. Recent lab work unremarkable . NO evidence of TD or EPS. Assessment & Plan (02/15/2024 2:07 PM CDT): O evidence of TD.Annual labs to monitor metabolic indices because patient is at greater risk of metabolic syndrome secondary to taking a SGA, are due today Assessment & Plan (08/14/2023 2:49 PM CATERPILLAR OPERATOR): Reviewed annual lab work performed by PCP in November. AIMs in March 2023 was wnl. Pt understands risks of medications. Assessment & Plan (03/09/2023 3:31 PM CDT): Reviewed annual lab work performed by PCP in November. AIMs today was wnl. Pt understands risks of medications. Assessment & Plan (10/05/2022 8:28 AM CATERPILLAR OPERATOR): Zeny would prefer to have his lab work done by PCP at pending sale to [facility] and will do this over spring. I will see him for AIMs in early summer. Assessment & Plan (05/10/2022 9:19 AM CDT): Zeny will plan on doing fasting labs over his spring break. We will do AIMs then too. Assessment & Plan (02/17/2022 2:36 PM CDT): Lab work and AIMs due again next November. Zeny report his weight is stable and he is engaged in healthy life style. Assessment & Plan (11/26/2021 5:06 PM CDT): Zeny is agreeable to having lab work done today. AIMs was unremarkable. Assessment & Plan (08/10/2021 2:40 PM CATERPILLAR OPERATOR): Discussed metabolic risks of Seroquel. Suggested that we repeat labs when he is seen in November, as going forward he will likely have an academic break at this time and can plan on an annual in person visit. He will consider this. See problem focussed overview and past problem focussed plans Assessment & Plan (07/07/2021 2:53 PM CDT): See problem focussed overview and past problem focussed plans Assessment & Plan (06/09/2021 2:09 PM CDT): Pt reports he is wiling to monitor self very carefully for symptoms of diabetes and he would prefer not to have blood work done this winter. He understands the risks and signs and symptoms of diabetes. Will check vital signs and AIMS in [facility] Assessment & Plan (04/20/2021 8:47 AM CDT): Pt and family understand metabolic risks of Seroquel and we also discussed risk of SSRI in his situation and possible treatment with lithium. He reports that lab work was done in the spring . Consider repeating lab work when he is seen in the clinic in [facility] and AIMS at that time too. Generalized anxiety disorder 04/19/2021 Assessment & Plan (11/20/2024 8:25 AM CDT): Zeny reports he hasn't been feeling anxious over the past week. Less worried about school, still needs to schedule oral test however. Discussed how stress can trigger mood episodes and all the healthy habits he is working on.Sleeping and eating adequately. Meeting with therapist. Reminded him to use Seroquel 25 mg prn if necessary. Assessment & Plan (11/06/2024 12:00 PM CATERPILLAR OPERATOR): Zeny is less axnious about futrure or academics. 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 Sleep is adequate. Presents as less perseverative and batter capable to tolerating ambiguities. Assessment & Plan (10/23/2024 12:14 PM CATERPILLAR OPERATOR): Zeny presents as highly anxious with racing thoughts and ruminations but doesn't label his internal experiences as anxiety. He has not expereinced increase in these symptoms since reducing Zoloft. Strongly encourage him to keep working with therapist. Encouraged him to use his SEroquel and ativan as well. 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 Concern that Zoloft has not relieved anxiety very much and may be perpetuating mood swings. He has not taken ativan or prn seroqule for anxiety or panic. Starting to taper Zoloft and reminded him that ativan is availableable for panic. Assessment & Plan (09/18/2024 8:37 AM CATERPILLAR OPERATOR): Reports that he has been experiencing a lot of anxiety that led toself hatred. Over the past week ( But no lethality) He was anxious that he couldn't sleep and that this would lead to mood problems and this led to more insomnia, . He missed the first week of classes convinced that he wouldn't perform well. Wed he was able to convince self to go to class and it went well. Reports feeling much relief and improved confidence. He had been scared that he wouldn't be able to go to complete the work and stay at [employer]. This led to not doing the work, he recognizes this prophesy is some what self fulling. The idea of taking a medical leave didn't feel like a good option. Wed he felt better after having seen friends and enjoyed his class. He is sleeping well, although continues to be some what preoccupied with monitoring his sleep. He has not been taking ativan to manage anxiety but he has occasionally takes prn Seroquel. Reviewed that it is ok to use the ativan if necessary. Encouraged therapy. We agree that we will continue current medication without change. Assessment & Plan (09/04/2024 8:07 AM CATERPILLAR OPERATOR): Zeny reports some anxiety about returning to school. This has interfered with his sleep in the last couple of nights as he anticipates having to start back with more intensive academics. However he is making plans to start doing some of his work now and do good self care. We agree that we will continue current medication without change. Assessment & Plan (08/14/2024 2:01 PM CATERPILLAR OPERATOR): Zeny reports that he has felt tired recently and very worried that he isnt sleeping well, and spends a lot of time worried that he isnt sleeping well. He and his therapist discussed ways to improve sleep and how his anxiety is perpetuating his insomnia. He and his mother and I discus that he very likely has a family history of anxiety and that the tendency to normalize symptoms of anxiety may be interfering with recognizing symptoms and labeling them and so that the concerns can be given the degree of attention they deserve but not become preoccupations or interfere with daily functioning and relationships. His mother acknowledges this might be the case. Seroquel will be titrated to 400 mg po qhs and Zoloft and therapy will be conitnued. Assessment & Plan (07/25/2024 11:54 AM CATERPILLAR OPERATOR): Zeny has had a marked increase in anxiety with recent depressive episode. He has been especially distressed about his school work, in spite of his college's reassurances. He is highly anxious about medication changes as well. One reason we opted for adding an SSRI was to address some of his baseline anxiety. Continue to monitor. Assessment & Plan (07/15/2024 10:32 AM CATERPILLAR OPERATOR): Severe anxiety has resolved as depression improved. Over the past week. Will monitor going forward to see if underlying anxiety is less on the combination of Zoloft and Seroquel. Assessment & Plan (07/08/2024 9:21 AM CATERPILLAR OPERATOR): Zeny is expereincing marked anxiety in context of severe depression. See bipoalr Assessment & Plan (07/02/2024 4:17 PM CDT): Zeny reports a higher amount of anxiety in recent days, please see bipolar for further discussion regarding treatment. Assessment & Plan (03/20/2024 1:42 PM CDT): Zeny reports that he has had a little more anxiety recently, he is worried that his sister is going to the where he believes she will be at greater risk for being assaulted. We talk about mitigating factors that will help her stay safe. He is getting ready to take his drivers test, working on [employer] parking and feeling confident about his abilities. He has not had increase in anxiety since we reduced Seroquel. Will continue to monitor Assessment & Plan (08/14/2023 2:48 PM CATERPILLAR OPERATOR): Zeny had a good experience in [place]. He lived with a family and did ok even though they had different political views. He is making plans to work on his portug[employer] Comp this year so as not to be overly stressed next year. Sleep and appetite are good. We agree that we will continue current medication without change. Assessment & Plan (03/09/2023 3:30 PM CDT): Reviewed management of medications and bipolar disorder aborad and discussed concerns about alcohol, he does not plan to drink while in [place]. Appears to be gaining confidence socially. Sleep and appetite are adequate. Continue to monitor anxiety. Assessment & Plan (05/10/2022 9:21 AM CDT): Zeny is hopeful that he and his new roommate will be a good fit. 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 He is not expressing as much anxiety about the semester as he has in the past, although he is a little anxious about having lab work done next spring. We agree to follow up towards the end of his first trimester to make sure he is managing things ok with the increase stress of school and more socialization. Assessment & Plan (02/17/2022 2:37 PM CDT): Zeny reports he and his mother agree that he will startpsychotherapy therapy to work on anxiety and building social skills. This came up when I wrote a letter to Jos about his need to have a singl room,. In an attempt to exxpress support for [employer] community living and self governance ideals I had explained that although he had some social anxiety and would benefit from building social skills it was the very serious condition of Bipolar 1 that necessitated his need for a single. Unfortunately the manager fund did not seem to appreciate the need for a single but Zeny and his mother have followed up on the suggestion that he could benefit from building his skills socially and being able to advocate for self without fear of ostracizing self. He will reach out to past therapist again. Assessment & Plan (11/26/2021 5:06 PM CDT): Discussed Zeny's rowing independence, efforts to socialize and exercise. Encourage good self care Assessment & Plan (08/09/2021 2:45 PM CATERPILLAR OPERATOR): Pt reports minimal concerns about anxiety. Sleeping well. Enjoying friends, although virtually at this time. Walking regualry with mom and dog. Assessment & Plan (06/09/2021 2:07 PM CDT): Reports adequate sleep and making good effort to be social, although in controlled settings such as clubs. Some concern about classes but not overall anxious by his report Continue to monitor Bipolar 1 disorder, depressed, severe ([facility]) 04/11/2021 Overview (10/09/2024): suffered his fist manic episode in Oct.e was hospitalized for about 2 weeks at [facility] when his parents realized he was floridly manic. It is unclear what precipitated the episode. He had not started an SSRI and had not misused any substances. He was started on Seroquel and briefly took ativan Ws stable on Seroquel ir 100 mg po a am and Seroquel xr 400 mg po qhs for several years. Decided in February 2024 that he wanted to try to taper medication Assessment & Plan (11/20/2024 8:25 AM CDT): Zeny reports he has been feeling better for a about a week. He has had no feelings of hopelessness or thoughts of lethality. He is less tired in the morning and more motivated to do things, he has been catching up on his school work and attending some work meetings too. He had an information session/interview with a small business. Walking regularly. Enjoyed time with family for his sister's birthday. Sleeping 7-9 hours a night. Weight is stable. No side effects with medication his mom is worried about his going back to campus for fear that his mood might plummet but he notes that being home is not necessarily protective. He has most problems when stressed whether at home or at school and going back to school early would not increase his stress. Encouraged him to consider that being on campus means more socialization and being busier and opportunities to go to the [employer] building.He will engage his grandfather in helping the family support him in his decisions to go back to campus. We agree to increase Lamictal to 150 mg daily with hopes that eventually we will be able to gradually reduce Seroquel Assessment & Plan (11/06/2024 12:00 PM CATERPILLAR OPERATOR): Zeny reports he is doing much better than when we last spoke. 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 Enjoying playing a competitive solitaire game with his little brother and mom.His motivation for classes and work are ok. No thoughts of for two weeks. He is still tired but he is sleeping ok. We discuss buttermaker continuous churn treatment plans and immediate treatment plans. Reviewed that it is difficult to predict if eventually he will be maintained on monotherapy Lamictal. He will stop sertraline today as planned he is to titrate to Lamictal 75 mg daily for about a week then when out of the 25 mg tab Lamictal 100 mg po daily. Seroquel xr 400 mg will not change Assessment & Plan (10/23/2024 12:14 PM CATERPILLAR OPERATOR): Zeny is struggling. He consents to having his mom talk but he doesn't want to participate noting it wont do any good. He forgot to reduce Zoloft but has been taking his Lamical. With some coaxing he participates in the end of the appointment, giving verbal consent to include his mom and to the medication changes recommend. His mother says that up until Oct 15 he seemed to be doing well, but then didn't get a job he had hoped for/anticipated getting at [employer], and since then he has been doing poorly. He asked his mom to come and pick him up from college. Missed medications only one day due to feeling hopeless and not eating or sleeping. Has been eating and sleeping better for past two days. He has told his mother he doesn't want to live. She has done everything possible to make house safe and he has not done anything to hurt self. His psychologist had suggested his mother step back, but since he is struggling more his mother is more involved. She is setting up his medication. Her father has convinced her to stop reading up on all of his medications, as a physician he has agreed to help monitor this which has been somewhat helpful for her. He has also been checking in on Zeny regularly. We discuss again that Zeny would benefit from inpatient . We discus his mother's struggle about respecting his autonomy versus keeping him safe. She is also frightened of disclosing things to me for fear that I would send law enforcement to them and she and Zeny would lose their ability to make decisions about his treatment..Zeny has told his mother he does not have a suicidal plan that he would act on because they would hurt. Neither will tell me what his plans were however. She assures me she has taken care to make sure he does not have access to firearms or any other lethal means to harm himself. We discuss treatment options at length.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
--- OUTSIDE RECORDS SUMMARY | 2024-12-13 15:26 | XMS_ITS | Clinical Summary ---
Author Organization [facility] Address [address] [place] [address] Care Team Providers Care Grain Oilseed Or Pasture Farm Worker Name Role Phone Dougie Veras MD Primary Care Provider + [phone] Source Comments You are receiving this document as you are listed as the primary care provider,follow-up provider, or the patient has been referred to you for consultation.This is in compliance with the Medicare and[facility] EHR Incentive Program,which states Providers who transition their patient to another setting of careor provider of care or refers their patient to another provider of care shouldprovide summary care record for each transition of care or referral. [facility] Allergies Active Allergy Reactions Criticality Noted Date Comments Adhesive Rash Low 05/01/2013 Latex Hives High 10/15/2020 Penicillins Hives High 08/08/2022 Medications QUEtiapine (SEROQUEL) 100 MG tablet Take 1 Tablet (100 mg) by mouth daily at bedtime. 2 Active QUEtiapine (SEROQUEL XR) 400 MG 24 hour release tablet Take 1 Tablet (400 mg) by mouth daily at bedtime. 2 Active fluticasone propionate (FLONASE) 50 MCG/ACT nasal solution Place 2 Sprays into both nostrils daily. Active pantoprazole DR (PROTONIX) 40 MG tabletIndication s:Gastroesophage al reflux disease without esophagitis Take 1 Tablet (40 mg) by mouth two times a day before meals. 180 Tablet 3 4 07/09/20 25 Active Active Problems Problem Noted Date Diagnosed Date Gastroesophageal reflux disease without esophagi tis 05/21/2024 High risk medication use 04/19/2021 Overview (08/08/2022): Pt has been educated about the metobolic risks of antipsychotic medications, as well as the risk of tardive dyskinesia. We will monitor labs and AIMS as per clinic protocol. Healthy life style habits have been strongly encouraged. Please see [facility] for most recent results. Last Assessment & Plan: Ha will plan on doing fasting labs over his spring break. We will do AIMs then too. Needle phobia 04/19/2021 Overview (08/08/2022): Last Assessment & Plan: Did get his meningitis shot recently and handled it well. Less concerned about having to do labs in the future, but very hesitant to make a commitment for doing them in November. Bipolar I disorder 04/11/2021 Overview (08/08/2022): suffered his fist manic episode in Oct.e was hospitalized for about 2 weeks at [facility] when his parents realized he was floridly manic. It is unclear what precipitated the episode. He had not started an SSRI and had not misused any substances. He was started on Seroquel and briefly took ativan Last Assessment & Plan: Ha is doing well. He denies sustained highs or lows in his mood. He is staying active and looking forward to being back at college. His sleep and appeitie are normal. Paternal Grandfather suddenly and that was a stress but he managed it well. He denies side effects from his medication or other concerns. concerns. Immunizations Immunization Administration Dates Next Due 4vHPV (Gardasil) 05/18/2014 9vHPV (Gardasil 9) 10/12/2017 Bexsero (Meningococcal Group B Vaccine) 08/08/2021,04/11/2021 DTaP 07/06/2008, 4,2003,2002,2003 Flu Vac (3+ yrs) 06/22/2007,06/23/2006, 5 Flu Vac Preserv Free (3+yrs) 06/29/2004 [id number] 09/22/2009 H1n1 Laiv Medimmune 2-49 Yr (Intranasal) 08/11/2009 HepA Adult (19+ yrs) 07/06/2008,05/17/2007 HepA, Unspecified Formulation 07/06/2008, 007 HepB Adult (Engerix-B, 20+ y rs, 3 dose series) 07/20/2004,2003,2003 HepB, Unspecified Formulation 07/20/2004, 003,2003 Hib (PedvaxHIB) 07/20/2004,2003,2003 Hib, Unspecified Formulation 07/20/2004,08/17/20 03,2003 IPV (Polio) 05/17/2007, 4,2003,2002 Influenza ([place] Only) (Flul aval Quad 0.5, 3+ yrs) 06/27/2019,10/12/2017 Influenza (LAIV), Unspecified 06/13/2011, 009 Influenza IIV4 (Quadrivalent ) 0.5mL ([id number]) 08/13/2023,06/23/2006,06/29/2004 Influenza LAIV (Nasal, 2-49 yrs) 022,06/01/2021,05/18/2020,2017,06/25/2015,05/18/2014 Influenza LAIV3 2-49 years (Flumist) ,06/13/2011,05/25/2009,2007 Influenza, Unspecified Formulation 06/22/2007,,06/29/2004 MCV4 (Menactra) 04/11/2021,05/18/2014 MCV4 Menveo 2m.+ (two vial) 05/18/2014 MMR 07/06/2008,05/16/2004 Moderna Bivalent 12+ 05/22/2022 Pfizer COVID-19 12+ 08/06/2023 Pfizer Monovalent 12+ Purple Top 09/05/2021,07/0 10/2020,02/11/2021 Pneumococcal 7, PED 07/20/2004, 4,2003,2002 TDAP (ADACEL) 07/06/2008, 4,2003,2002,2003 Tdap 05/18/2014 Varicella 07/06/2008,02/09/2005 Family History Medical History Relation Name Comments High Cholesterol Father Abimael Jean Hyperlipidemia Father Abimael Jean Hypertension Father Abimael Jean Bipolar Disorder Mother Jodie Jean Depression Mother Jodie Jean Cancer Maternal Grandfather Catalino Sockalosky Coronary Artery Disease Maternal Grandfather Catalino So ckalosky Depression Maternal Grandfather Catalino Sockalosky Heart Disease Maternal Grandfather Catalino Sockalosky High Cholesterol Maternal Grandfather Catalino Sockalosk y Hypertension Maternal Grandfather Catalino Sockalosky Hypertension Maternal Grandmother Sandhya Sockalosky Depression Maternal Uncle Nasim Sockalosky Diabetes Paternal Grandfather Paco Lengyel Cancer Paternal Grandmother Brandee Lengyel Cancer, Breast Paternal Grandmother Brandee Eliceogyel Relation Name Status Comments Father Abimael Jean Mother Jodie Jean Maternal Grandfather Catalino Sockalosky Maternal Grandmother Sandhya Sockalosky Maternal Uncle Nasim Sockalosky Paternal Grandfather Paco Fentongyel Paternal Grandmother Brandeemario Fentongyel Social History Tobacco Use Types Packs/Day Years Used Date Smoking Tobacco: Never Smokeless Tobacco: Never Tobacco Cessation:Counseling Given: Not Answered Alcohol Use Standard Drinks/Week Comments Never 0 (1 standard drink = 0.6 oz pur e alcohol) PHQ-2 Answer Date Recorded PHQ-2 Score 0 12/31/2023 Sex and Gender Information Value Date Recorded Sex Assigned at Not on file Legal Sex Male 8:07 AM DIGITAL STRATEGIST SENIOR MANAGER Gender Identity Not on file Sexual Orientation Not on file Last Filed Vital Signs Vital Sign Reading Time Taken Comments Blood Pressure 139/81 08/08/2022 4:02 PM DIGITAL STRATEGIST SENIOR MANAGER Pulse 104 08/08/2022 4:02 PM DIGITAL STRATEGIST SENIOR MANAGER Temperature 36.6 C (97.8 F) 08/08/2022 4:02 PM DIGITAL STRATEGIST SENIOR MANAGER Respiratory Rate 16 08/08/2022 4:02 PM DIGITAL STRATEGIST SENIOR MANAGER Oxygen Saturation 99% 08/08/2022 4:02 PM DIGITAL STRATEGIST SENIOR MANAGER Inhaled Oxygen Concentration - - Weight 65.1 kg (143 lb 8 oz) 12/31/2023 9:49 AM CDT pt reported Height 181 cm (5' 11.25) 08/08/2022 4:02 PM DIGITAL STRATEGIST SENIOR MANAGER Body Mass Index 19.87 08/08/2022 4:02 PM DIGITAL STRATEGIST SENIOR MANAGER Plan of Treatment Health Maintenance Due Date Last Done Comments Hep C Screening (Preventive Services) 2003 HIV Screening (Preventive Services) 2019 Adult Preventive Visit 08/08/2023 08/08/2022 COVID-19 Vaccine ( season) 2024 08/06/2023, 05/22/2022, 09/05/2021, Additional history exists Influenza (#1) 2024 08/13/2023, 06/05, 06/01/2021, Additional history exists DTaP/Tdap/Td (7 - Tdap) 05/18/2024 05/18/20 14, 07/06/2008, 07/06/2008, Additional history exists Zoster/Shingles (1 of 2) 2053 HepB Completed 07/20/2004, 07/04, 2003, Additional history exists Hib Completed 07/20/2004, 07/04, 2003, Additional history exists Pneumococcal Aged Out 07/20/2004, 10/05, 2003, Additional history exists No longer eligible based on patient's age to complete this topic IPV (Polio) Completed 05/17/2007, 10/05, 2003, Additional history exists HepA Completed 07/06/2008, 11/2007, 07/06/2008, Additional history exists Varicella Completed 07/06/2008, 02/09/2005 HPV Vaccine Completed 10/12/2017, 05/04, 05/18/2014 MCV4 Completed 04/11/2021, 05/04, 05/18/2014 Meningococcal B Completed 08/08/2021, 04/11/2021 Insurance [facility] Care Teams Grain Oilseed Or Pasture Farm Worker Relationship Specialty Start Date End Date Dougie Veras MD [address] [place] [address] PCP - General Internal Medicine 07/06/22
--- OUTSIDE RECORDS SUMMARY | 2024-12-13 15:26 | XMS_ITS | Encounter Summary ---
Author Organization [facility] Address [address] [place] [address] Phone Care Team Providers Care Customer Support Technician Name Role Phone Ene Mariscal DO Unavailable [phone] Dougie Veras MD Primary Care Provider Reason for Visit * Reason Onset Date Comments Psych Medication Management 11/06/2024 Encounter Details Date Type Department Care Team (Late st Contact Info) Description 11/06/2024 11:00 AM PLATE MILL HAND Telemedicine [facility] Psychiatry Clinic [place] [address] [place] [address] Ene Mariscal, DO [address] [place] [address] High risk medication use (Primary Dx); Bipolar 1 disorder, depressed, severe (CMS/HHS); Generalized anxiety disorder Discharge Disposition: Discharged to home or self care Social History Tobacco Use Types Packs/Day Years [...] Sexual Orientation Bisexual 07/12/2024 9: 36 AM PLATE MILL HAND Sexual Orientation Pansexual 07/12/2024 9: 36 AM PLATE MILL HAND documented as of this encounter Patient Instructions * Patient Instructions* Ene Mariscal, DO - 11/06/2024 11:00 AM PLATE MILL HAND Only the psychiatric medicines on this list were confirmed at this visit. Please review the other medicines on this list with the person who prescribed them to make sure that they are correct. Clinic Information Clinic Hours Telephone Number [facility] Adult Outpatient Psychiatry Clinic 8:00am-4:30pm Sunday-Sunday [phone] Parking information Free parking available in the surface lot directly behind the [facility].Dog License Officer Supervisor staff in the clinic will provide you with the parking code at the end of your clinic visit. Appointment Scheduling We encourage you to schedule your next visit in the clinic at the time of your appointments. Our schedules are very full and scheduling at the conclusion of each clinic visit will assure you a timely return visit. If you are unable to attend your appointment for any reason, you need to contact us 24 hours in advance to cancel so we have the opportunity to fill your spot in the schedule. Multiple failures to cancel without 24 hour notice could result in our inability to continue your care in this clinic. Medication Refills If you are in need of medication refills, contact your pharmacy directly and they will put through a request on your behalf. Please allow 5 business days for processing of refill requests. Emergencies If you are experiencing a medical emergency, call 911 or go immediately to the emergency department closest to you. If you are experiencing a mental health emergency, you can visit the Acute Psychiatric Services (APS) Department at [facility], [place] [address]. [phone]. The APS department is open 24 hours a day, seven days a week. APS is located adjacent to the Emergency Department on the main floor of the [facility]. For urgent needs that can wait until the clinic is open, please call the clinic at [phone] andleave a message for our triage nurse. Requests for medication changes will not be addressed after hours or on weekends. Forms/Paperwork Requests We do our best to get forms and paperwork requests completed as soon as possible, however, due to the large volume of requests we receive you should allow 7-10 business days for completion of forms and requests for paperwork or copies of your medical record. Questions/Requests If you have non-emergent questions or a need to speak to clinic staff, please contact our office at [phone] to leave a message. Typically calls are returned by the end of the day. You can be assured that a provider or triage nurse will call you back within one business day. Freddie As a patient of [facility], you are able to access an on-line version of your medical record at [facility] called [facility]. If you are not currently active on [facility], please speak to the clinical laboratory service teacher during your visit to get set up or call our office at [phone]. [facility] allows you to leave messages and schedule appointments electronically and does not require a phone call to the clinic. Pharmacy [facility] has two patient pharmacies for your convenience: [facility] Pharmacy: Is located on the first level of the [facility] and services all the clinics. Hours of operation: Sunday-Sunday 8:00AM to 6:00PM Sunday 9:00AM to 1:00PM Phone number: [facility] Pharmacy: Is located in the lower level of the [facility] and services employee and transplant/specialty needs. Hours of operation: Sunday-Sunday 7:30AM to 6:00PM Phone numbers: Josh: Transplant/Specialty: Pharmacy Refill Line Information Please have the following information ready, then call [phone]: 1.) Name (First and Last) 2.) Hospital Number (Medical record #) 3.) Date of 4.) Telephone number where you may be reached (including area code) Important Mental Health Resources Acute Psychiatric Services (APS) Department - [facility] - [phone] Partial Hospital Program - [facility] - [phone] Day Treatment Program - [facility] - [phone] [facility] Front Door Access - [phone] [facility] Behavioral Health Case Management - [phone] [facility] ([facility]) - [phone] [facility] Chemical Health Assessment Services - [phone] E MILL HAND documented in this encounter Progress Notes * Ene Mariscal DO - 11/06/2024 11:00 AM CST [facility] [place] Patient Name: Ha Jean : 2005 Preferred Name: Ha Date of Service: 11/06/2024 Medical Decision Making: Assessment & Plan Bipolar 1 disorder, depressed, severe ([facility]) Ha reports he is doing much better than [...] but he is sleeping ok. We discuss long chain beamer treatment plans and immediate treatment plans. Reviewed that it is difficult to predict if eventually he will be maintained on monotherapy Lamictal. He will stop sertraline today as planned he is to titrate to Lamictal 75 mg daily for about a week then when out of the 25 mg tab Lamictal 100 mg po daily. Seroquel xr 400 mg will not change High risk medication use He reports no side effects from Seroquel.Continue monitoring for rash as we titrate up on Lamcital to 100 mg daily. Generalized anxiety disorder Ha is less axnious about futrure or academics. 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 Sleep is adequate. Presents as less perseverative and batter capable to tolerating ambiguities. Return in about 2 weeks (around 11/20/2024). Current Psychiatric Medications: Psychiatric medications at start of today's visit: Current Outpatient Medications on File Prior to Visit Medication Sig Dispense Refill sertraline (ZOLOFT) 50 mg oral tablet Take 1 tablet (50 mg) by mouth daily. 30 tablet 1 QUEtiapine (SEROQUEL) 25 mg oral TABS Take 1 tablet (25 mg) by mouth twice daily as needed (For extreme anxiety). Indications: Generalized Anxiety Disorder 60 tablet 2 QUEtiapine (SEROQUEL XR) 400 mg oral XR tablet Take 1 tablet (400 mg) by mouth at bedtime. 90 tablet 0 LORazepam (ATIVAN) 0.5 mg oral tablet Take 1 tablet (0.5 mg) by mouth twice daily as needed for Anxiety. 30 tablet 2 pantoprazole (PROTONIX) 40 mg oral tablet Take 1 tablet (40 mg) by mouth daily. No current facility-administered medications on file prior to visit. Substance Use: denies Safety Screening: SI: Mr. Jean reports in interview no suicidal thoughts. HI: He reports no violent ideation. He reports current abuse concerns: none. Most Recent C-SSRS Calculated C-SSRS Risk Score (Since Last Contact): No Risk Identified - Provide treatment per regular standard of care, complete SAFE-T assessment only if needed based on clinical judgment (11/06/2024 11:56 AM) Objective: There were no vitals taken for this visit. APS MENTAL STATUS EXAM: Appearance: No Apparent Distress and Casually Groomed Behavior/Relation to Examiner/Demeanor: Cooperative Motor Activity/EPS/Muscle Strength and Tone: Normal Speech Rate: Normal Speech Volume: Normal Speech Articulation: Normal Speech Coherence: Normal Speech Spontaneity: Normal Mood: Depressed and Anxious Affect: Appropriate/mood-congruent Associations: Logical/goal-directed Thought Process Rate: Normal Thought Content: Normal Abnormal Perception: None Sensorium: Alert, Orientated to person, Orientated to place, Orientated to date/time and Orientatedto situation Attention/Concentration: Normal Memory: Immediate recall intact, Short-term memory intact and Long-term memory intact Computation: Intact Language: Intact Abstraction: Normal Insight: Fair Judgement: Adequate Telemedicine Documentation MyChart Video Visit: This telemedicine visit is conducted by audio and video technology between thepatient and provider. Informed consent was provided during e-check in and signed by patient. Patient was offered opportunity to ask any questions. Patient's Physical Location: home Provider's Physical Location: Offsite Participants in this Telemedicine Visit other than the patient/provider included: mother inback ground, prmpts questions about medication and prognosis. This visit started at: 11:04 AM and concluded at: 11:22 AM. Was able to reconnext with video after 1 min of disconnection E MILL HAND documented in this encounter Miscellaneous Notes * Assessment & Plan Note - Ene Mariscal DO - 11/06/2024 11:00 AM PLATE MILL HAND Associated Problem(s): Bipolar 1 disorder, depressed, severe ([facility]) Ha reports he is doing much better than [...] but he is sleeping ok. We discuss long chain beamer treatment plans and immediate treatment plans. Reviewed that it is difficult to predict if eventually he will be maintained on monotherapy Lamictal. He will stop sertraline today as planned he is to titrate to Lamictal 75 mg daily for about a week then when out of the 25 mg tab Lamictal 100 mg po daily. Seroquel xr 400 mg will not change E MILL HAND E MILL HAND E MILL HAND * Assessment & Plan Note - Ene Mariscal DO - 11/06/2024 11:00 AM PLATE MILL HAND Associated Problem(s): High risk medication use He reports no side effects from Seroquel.Continue monitoring for rash as we titrate up on Lamcital to 100 mg daily. E MILL HAND E MILL HAND * Assessment & Plan Note - Ene Mariscal DO - 11/06/2024 11:00 AM PLATE MILL HAND Associated Problem(s): Generalized anxiety disorder Ha is less axnious about futrure or academics. 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 Sleep is adequate. Presents as less perseverative and batter capable to tolerating ambiguities. E MILL HAND E MILL HAND documented in this encounter Plan of Treatment Upcoming Encounters Date Type Department Care Team (Late st Contact Info) Description 12/25/2024 11:20 AM CDT Telemedicine [facility] Psychiatry Clinic [place] [address] [place] [address] Ene Mariscal DO [address] [place] [address] Scheduled Discharge Disposition: Discharged to home or self care documented as of this encounter Visit Diagnoses Diagnosis High risk medication use- Primary Encounter for long-term (current) use of other medications Bipolar 1 disorder, depressed, severe (CMS/HHS) Bipolar I disorder, most recent episode (or current) depressed, severe, without mention of psychotic behavior Generalized anxiety disorder documented in this encounter Additional Health Concerns Assessment Noted Time PHQ-9 Depression Total Score: 15 10/28/ 025 4:17 AM PLATE MILL HAND PHQ-2 Depression Total Score: 4 10/28/19 25 4:17 AM PLATE MILL HAND documented as of this encounter Care Teams Customer Support Technician Relationship Specialty Start Date End Date Dougie Veras MD [address] [facility] [place] [address] PCP - General Internal Medicine 07/31/22 Ene Mariscal DO [address] [place] [id number] Psychiatrist Outpatient Psychiatry 04/20/21 documented as of this encounter
--- OUTSIDE RECORDS SUMMARY | 2024-12-13 15:26 | XMS_ITS | Encounter Summary ---
Author Organization [facility] Address [address] [facility] [place] [address] Phone Care Team Providers Care Stove Carriage Operator Name Role Phone Ene Mariscal DO Unavailable [phone] Dougie Veras MD Primary Care Provider Encounter Details Date Type Department Care Team (Late st Contact Info) Description 11/08/2024 Telephone [facility] [place] [address] [place], [place] [id number] Clint Moeller MD [address] [place], [place] [address] Social History Tobacco Use Types Packs/Day Years [...] Sexual Orientation Bisexual 07/12/2024 9: 36 AM HISTORICAL INTERPRETER Sexual Orientation Pansexual 07/12/2024 9: 36 AM HISTORICAL INTERPRETER documented as of this encounter Miscellaneous Notes * Telephone Encounter - Clint Moeller MD - 11/08/2024 4:34 PM HISTORICAL INTERPRETER Body Art Technician received call from answering service that mother is trying to contact powder monkey psychiatrist. I called mother, Jodie, . States primary reason for call is for Dr. Mariscal to know that patient is not doing as well as he was when she saw him on . Notes on he wasfine and now he is not wanting to do as much. Mother does not have acute safety concerns and states that patient told her he is not having any suicidal thoughts. Mother planning to contact clinic on Sunday morning. I informed her that I would also route my note to Dr. Mariscal. Mother also inquired about possibility of a more rapid titration of lamotrigine. I told her I woulddefer any med changes to Dr Mariscal and recommend he only take meds as rx'd. I reviewed increasedrisk of SJS with more rapid titration. As such, very important to take only as prescribed. She expressed understanding. Mother aware to go to APS/ER if symptoms worsen. Expressed understanding and states they would go to the EMPATH unit if needed. She had no further questions at the time and expressed appreciation forthe call back. Clint Moeller MD, 11/08/2024 4:39 PM ORICAL INTERPRETER documented in this encounter Plan of Treatment Upcoming Encounters Date Type Department Care Team (Late st Contact Info) Description 12/25/2024 11:20 AM CDT Telemedicine [facility] Psych[facility] [place] [address] [place] [address] Ene Mariscal DO [address] [place] [address] Scheduled Discharge Disposition: Discharged to home or self care documented as of this encounter Visit Diagnoses Not on filedocumented in this encounter Additional Health Concerns Assessment Noted Time PHQ-9 Depression Total Score: 15 025 4:17 AM HISTORICAL INTERPRETER PHQ-2 Depression Total Score: 4 10/28/19 25 4:17 AM HISTORICAL INTERPRETER documented as of this encounter Care Teams Stove Carriage Operator Relationship Specialty Start Date End Date Dougie Veras MD [address] [place] [address] PCP - General Internal Medicine 07/31/22 Ene Mariscal DO [address] [place] [address] Psychiatrist Outpatient Psychiatry 04/20/21 documented as of this encounter
--- OUTSIDE RECORDS SUMMARY | 2024-12-13 15:26 | XMS_ITS | Encounter Summary ---
Author Organization [facility] Address [address] [place] [address] Phone Care Team Providers Care Acid Plant Helper Name Role Phone Ene Mariscal DO Unavailable [phone] Dougie Veras MD Primary Care Provider Reason for Visit * Reason Onset Date Comments Psych Medication Management 11/20/2024 Encounter Details Date Type Department Care Team (Late st Contact Info) Description 11/20/2024 8:00 AM CDT Telemedicine [facility] [place] [address] [place] [address] Ene Mariscal, DO [address] [place] [address] Bipolar 1 disorder, depressed, severe (CMS/HHS) (Primary [...] Sexual Orientation Bisexual 07/12/2024 9: 36 AM MECHANICAL DOOR REPAIRER Sexual Orientation Pansexual 07/12/2024 9: 36 AM MECHANICAL DOOR REPAIRER documented as of this encounter Patient Instructions * Patient Instructions* Ene Mariscal, DO - 11/20/2024 8:00 AM CDT Only the psychiatric medicines on this list were confirmed at this visit. Please review the other medicines on this list with the person who prescribed them to make sure that they are correct. Clinic Information Clinic Hours Telephone Number [facility] 8:00am-4:30pm Sunday-Sunday [phone] Parking information Free parking available in the surface lot directly behind the [facility].Mine Superintendent staff in the clinic will provide you [...] the Acute Psychiatric Services (APS) Department at [facility], [place] [address]. [phone]. The APS department is open 24 hours a day, seven days a week. APS is located adjacent to the Emergency Department on the main floor of the [facility]. For urgent needs that can wait until the clinic is open, please call the clinic at [phone] andleave a message for our triage nurse. [...] clinic staff, please contact our office at [phone] to leave a message. Typically calls are returned by the end of the day. You can be assured that a provider or triage nurse will call you back within one business day. Freddie As a patient of [facility], you are able to access an on-line version of your medical record at [facility] called [facility]. If you are not currently active on [facility], please speak to the clinical systems analyst during your visit to get set up or call our office at [phone]. [facility] [employer] allows you to leave messages and schedule appointments electronically and does not require a phone call to the clinic. Pharmacy [facility] has two patient pharmacies for your convenience: [facility]) Pharmacy: Is located on the first level of the [facility] and services all the clinics. Hours of operation: Sunday-Sunday 8:00AM to 6:00PM Sunday 9:00AM to 1:00PM Phone number: [facility]: Is located in the lower level of the [facility] and services employee and transplant/specialty needs. Hours of operation: Sunday-Sunday 7:30AM to 6:00PM Phone numbers: [facility]: Transplant/Specialty: Pharmacy Refill Line Information Please have the following information ready, then call [phone]: 1.) Name (First and Last) 2.) Hospital Number (Medical record #) 3.) Date of 4.) Telephone number where you may be reached (including area code) Important Mental Health Resources Acute Psychiatric Services (APS) Department - [facility] - [phone] Partial Hospital Program - [facility] - [phone] Day Treatment Program - [facility] - [phone] [facility] Front Door Access - [phone] [facility] Behavioral Health Case Management - [phone] [facility]) - [phone] [facility] Chemical Health Assessment Services - [phone] documented in this encounter Progress Notes * Ene Mariscal DO - 11/20/2024 8:00 AM CDT [facility] [place] Patient Name: Ha Jean : 2005 Preferred Name: Ha Date of Service: 11/20/2024 Medical Decision Making: Assessment & Plan Bipolar 1 disorder, depressed, severe ([facility]) Ha reports he has been feeling better for a about a week. He has had no feelings of hopelessness or thoughts of lethality. He is less tired in the morning and more motivated to do things, he has been catching up on his school work and attending some work meetings too. He had an information session/ interview with a small business. Walking regularly. Enjoyed [...] busier and opportunities to go to the [facility] building.He will engage his grandfather in helping the family support him in his decisions to go back to campus. We agree to increase Lamictal to 150 mg daily with hopes that eventually we will be able to gradually reduce Seroquel Generalized anxiety disorder Ha reports he hasn't been feeling anxious over the past week. Less worried about school, still needs to schedule oral test however. Discussed how stress can trigger mood episodes and all the healthyhabits he is working on.Sleeping and eating adequately. Meeting with therapist. Reminded him to useSeroquel 25 mg prn if necessary. High risk medication use He reports no side effects from Seroquel.Continue monitoring for rash as we titrate up on Lamcital to 150 mg daily. Longer term plan is to try to minimize Seroquel if Lamictal is effective and well tolerated. Labs due again in late spring. Return in about 5 weeks (around 12/25/2024). Current Psychiatric Medications: Psychiatric medications at start of today's visit: Lamictal 100 mg po daily Seroquel xr 400 mg po qhs Seroquel; 25 mg po bid prn Substance Use: denies Safety Screening: SI: Mr. Jean reports in interview no suicidal thoughts. HI: He reports no violent ideation. He reports current abuse concerns: none. Most Recent C-SSRS Calculated C-SSRS Risk Score (Since Last Contact): No Risk Identified - Provide treatment per regular standard of care, complete SAFE-T assessment only if needed based on clinical judgment (:23 AM) Objective: There were no vitals taken for this visit. APS MENTAL STATUS EXAM: Appearance: No Apparent Distress Behavior/Relation to Examiner/Demeanor: Cooperative Motor Activity/EPS/Muscle Strength and Tone: Normal Speech Rate: Normal Speech Volume: Normal Speech Articulation: Normal Speech Coherence: Normal Speech Spontaneity: Normal Mood: Neutral Affect: Appropriate/mood-congruent Associations: Logical/goal-directed Thought Process Rate: Normal Thought Content: Normal Abnormal Perception: None Sensorium: Alert, Orientated to person, Orientated to place, Orientated to date/time and Orientatedto situation Attention/Concentration: Normal Memory: Immediate recall intact, Short-term memory intact and Long-term memory intact Computation: Intact Language: Intact Abstraction: Normal Insight: Adequate Judgement: Adequate Telemedicine Documentation MyChart Video Visit: This telemedicine visit is conducted by audio and video technology between thepatient and provider. Informed consent was provided during e-check in and signed by patient. Patient was offered opportunity to ask any questions. Patient's Physical Location: home Provider's Physical Location: Offsite Participants in this Telemedicine Visit other than the patient/provider included: N/A This visit started at: 8:03 AM and concluded at: 8:22 AM. documented in this encounter Miscellaneous Notes * Assessment & Plan Note - Ene Mariscal DO - 11/20/2024 8:00 AM CDT Associated Problem(s): Bipolar 1 disorder, depressed, severe ([facility]) Ha reports he has been feeling better for a about a week. He has had no feelings of hopelessness or thoughts of lethality. He is less tired in the morning and more motivated to do things, he has been catching up on his school work and attending some work meetings too. He had an information session/ interview with a small business. Walking regularly. Enjoyed [...] busier and opportunities to go to the [facility] building.He will engage his grandfather in helping the family support him in his decisions to go back to campus. We agree to increase Lamictal to 150 mg daily with hopes that eventually we will be able to gradually reduce Seroquel * Assessment & Plan Note - Ene Mariscal DO - 11/20/2024 8:00 AM CDT Associated Problem(s): Generalized anxiety disorder Ha reports he hasn't been feeling anxious over the past week. Less worried about school, still needs to schedule oral test however. Discussed how stress can trigger mood episodes and all the healthyhabits he is working on.Sleeping and eating adequately. Meeting with therapist. Reminded him to useSeroquel 25 mg prn if necessary. * Assessment & Plan Note - Ene Mariscal DO - 11/20/2024 8:00 AM CDT Associated Problem(s): High risk medication use He reports no side effects from Seroquel.Continue monitoring for rash as we titrate up on Lamcital to 150 mg daily. Longer term plan is to try to minimize Seroquel if Lamictal is effective and well tolerated. Labs due again in late spring. documented in this encounter Plan of Treatment Upcoming Encounters Date Type Department Care Team (Late st Contact Info) Description 12/25/2024 11:20 AM CDT Telemedicine [facility] [place] [address] [place] [address] Ene Mariscal DO [address] [place] [address] Scheduled Discharge Disposition: Discharged to home or self care documented as of this encounter Visit Diagnoses Diagnosis Bipolar 1 disorder, depressed, severe (CMS/HHS)- Primary Bipolar I disorder, most recent episode (or current) depressed, severe, without mention of psychotic behavior Generalized anxiety disorder High risk medication use Encounter for long-term (current) use of other medications documented in this encounter Additional Health Concerns Assessment Noted Time PHQ-9 Depression Total Score: 15 025 4:17 AM MECHANICAL DOOR REPAIRER PHQ-2 Depression Total Score: 4 10/28/19 25 4:17 AM MECHANICAL DOOR REPAIRER documented as of this encounter Care Teams Acid Plant Helper Relationship Specialty Start Date End Date Dougie Veras MD [address] [place] [address] PCP - General Internal Medicine 07/31/22 Ene Mariscal DO [address] [place] [id number] Psychiatrist Outpatient Psychiatry 04/20/21 documented as of this encounter
[2024-12-13 15:27] LABS: Acetaminophen* < 10.0 ug/mL (10.0-30.0); Ethanol* < 0.01 % (0.01-0.03); Salicylate* < 1.0 mg/dL (1.0-10)
--- OUTSIDE RECORDS SUMMARY | 2024-12-13 15:27 | XMS_ITS | Encounter Summary ---
Author Organization [facility] Address [address] [place] [address] Phone Care Team Providers Care Spare Hand Name Role Phone Ene Mariscal DO Unavailable [phone] Dougie Veras MD Primary Care Provider Encounter Details Date Type Department Care Team (Late st Contact Info) Description 11/10/2024 Telephone [facility] [place] [address] [place] [address] Ute Jama, RN [address] [place] [address] Social History Tobacco Use Types [...] Sexual Orientation Bisexual 07/12/2024 9: 36 AM CIRCUS ARTIST Sexual Orientation Pansexual 07/12/2024 9: 36 AM CIRCUS ARTIST documented as of this encounter Miscellaneous Notes * Telephone Encounter - Ute Jama RN - 11/10/2024 2:53 PM CDT Called patient. No answer and voicemail is full. Spoke to Jodie. She just spoke to patient aboutincreasing lamotrigine to 100 mg and he was agreeable. Asked her to have him call the clinic or respond to [employer] message to confirm. He did get up and take a shower and will be going for a walk with Mom later. Discussed support for Mom. She is aware of [facility]. Thanked [employer] and stated she is able to find support as needed. * Telephone Encounter - Ute Jama RN - 11/10/2024 9:11 AM CDT See 11/08/24 telephone encounter from patient's mother. Telephone with Clint Moeller MD (11/08/2024) Spoke to Jodie. Patient presented thesis last week and since then fatigue and anxiety have increased, motivation has decreased. Has oral exam for thesis tomorrow but all weekend has only wanted tolay in bed and read. Mom has tried to get him to go for a walk or talk to therapist but he declines. Has stated he is safe, denies SI/SIB/HI. Patient taking 75 mg lamotrigine until 25 mg tabs run out (about 11 days) then will start 100 mg. Also taking Seroquel 400 mg and Unisom QHS. Jodie asking for guidance, whether starting lamotrigine 100 mg would be helpful or other options. Dr. Mariscal - please advise * Telephone Encounter - Ute Jama RN - 11/10/2024 9:08 AM CDT ----- Message from Sara Teresa sent at 11/10/2024 8:56 AM CDT ----- TELEPHONE MESSAGE Taken by: Sara Amador, 11/10/2024 8:57 AM Direct to: Jose Roger Problem: Wants to discuss issues going on with her son Ha at this time. (Nikhil Feliciano) Pt. Name: Ha Jean : 2005 (home) Mobile Insurance: PCP: Dougie Veras MD Comment: Expects Return Call at: Nikhil Feliciano is at [phone] documented in this encounter Plan of Treatment Upcoming Encounters Date Type Department Care Team (Late st Contact Info) Description 12/25/2024 11:20 AM CDT Telemedicine [facility] Psych[facility] [place] [address] [place] [address] Ene Mariscal DO [address] [place] [address] Scheduled Discharge Disposition: Discharged to home or self care documented as of this encounter Visit Diagnoses Not on filedocumented in this encounter Additional Health Concerns Assessment Noted Time PHQ-9 Depression Total Score: 15 025 4:17 AM CIRCUS ARTIST PHQ-2 Depression Total Score: 4 10/28/19 25 4:17 AM CIRCUS ARTIST documented as of this encounter Care Teams Spare Hand Relationship Specialty Start Date End Date Dougie Veras MD [address] [place] [address] PCP - General Internal Medicine 07/31/22 Ene Mariscal DO [address] [place] [address] Psychiatrist Outpatient Psychiatry 04/20/21 documented as of this encounter
--- OUTSIDE RECORDS SUMMARY | 2024-12-13 15:27 | XMS_ITS | Encounter Summary ---
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
--- OUTSIDE RECORDS SUMMARY | 2024-12-13 15:27 | XMS_ITS | Clinical Summary ---
Author Organization [email or web address] Address [address] [place] [address] Phone Care Team Providers Care Fruit Preserver Name Role Phone Ene Mariscal DO Unavailable [phone] Dougie Veras MD Primary Care Provider Source Comments [employer] is fully rolled out on [employer]. 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 Assessment & Plan (08/14/2024 1:56 PM KNIFE BLADE POLISHER): Needle phobia is causing some interference with prescribing lithium, the gold standard treatment for bipolar disorder. Assessment & Plan (07/25/2024 11:52 AM KNIFE BLADE POLISHER): Zeny was initially agreeable to a trail of xanax to help with needle phobia on Sunday when we planned to do lab work. The plan was his mother would drive to appointment. Zeny does ot use alcohol and understands risks of xanax. This will now be on hold due to not starting lithium. Assessment & Plan (08/10/2021 2:41 PM KNIFE BLADE POLISHER): Did get his meningitis shot recently and [...] habits have been strongly encouraged. Please see Epic for most recent results. Assessment & Plan (11/20/2024 8:25 AM CDT): He reports no side effects from Seroquel.Continue monitoring for rash as we titrate up on Lamcital to 150 mg daily. Longer term plan is to try to minimize Seroquel if Lamictal is effective and well tolerated. Labs due again in late spring. Assessment & Plan (11/06/2024 12:00 PM KNIFE BLADE POLISHER): He reports no side effects from Seroquel.Continue monitoring for rash as we titrate up on Lamcital to 100 mg daily. Assessment & Plan (10/23/2024 12:14 PM KNIFE BLADE POLISHER): He reports no side effects from Seroquel. Reviewed symptoms of SJ rash with his mother and importance of adhering to medication. Assessment & Plan (09/18/2024 8:28 AM KNIFE BLADE POLISHER): He reports no side effects from Seroquel. Assessment & Plan (09/04/2024 8:10 AM KNIFE BLADE POLISHER): See problem focussed overview and past problem focussed plans . Weight stable.Denies side effects of medications Assessment & Plan (08/14/2024 3:24 PM KNIFE BLADE POLISHER): See problem focussed overview and past problem focussed plans . Assessment & Plan (07/25/2024 11:55 AM KNIFE BLADE POLISHER): An AIMS to monitor for tardive dyskinesia [...] well. Assessment & Plan (07/15/2024 10:36 AM KNIFE BLADE POLISHER): An AIMS to monitor for tardive dyskinesia and annual labs to monitor metabolic indices because patient is at greater risk of metabolic syndrome secondary to taking a SGA, are due in summer. Recent lab work unremarkable . NOoevidence of TD or EPS. Monitor closely for increase in suicidal ideation or faviola as Zoloft is conitnued Assessment & Plan (07/08/2024 9:22 AM KNIFE BLADE POLISHER): An AIMS to monitor for tardive dyskinesia [...] today Assessment & Plan (08/14/2023 2:49 PM KNIFE BLADE POLISHER): Reviewed annual lab work performed by PCP in November. AIMs in March 2023 was wnl. Pt understands risks of medications. Assessment & Plan (03/09/2023 3:31 PM CDT): Reviewed annual lab work performed by PCP in November. AIMs today was wnl. Pt understands risks of medications. Assessment & Plan (10/05/2022 8:28 AM KNIFE BLADE POLISHER): Zeny would prefer to have his lab work done by [facility]CP [facility] and will do this over spring. I [...] unremarkable. Assessment & Plan (08/10/2021 2:40 PM KNIFE BLADE POLISHER): Discussed metabolic risks of Seroquel. Suggested that [...] Will check vital signs and [facility] in [facility] Assessment & Plan (04/20/2021 8:47 AM CDT): Pt and family understand metabolic risks of Seroquel and we also discussed risk of SSRI in his situation and possible treatment with lithium. He reports that lab work was done in the spring . Consider repeating lab work when he is seen in the clinic in [facility] and AIMS at that time too. Generalized [...] necessary. Assessment & Plan (11/06/2024 12:00 PM KNIFE BLADE POLISHER): Zeny is less axnious about futrure or academics. 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 Sleep is adequate. Presents as less perseverative and batter capable to tolerating ambiguities. Assessment & Plan (10/23/2024 12:14 PM KNIFE BLADE POLISHER): Zeny presents as highly anxious with racing thoughts and ruminations but doesn't label his internal experiences as anxiety. He has not expereinced increase in these symptoms since reducing Zoloft. Strongly encourage him to keep working with therapist. Encouraged him to use his SEroquel and ativan as well. Assessment & Plan (10/09/2024 1:21 PM KNIFE BLADE POLISHER): Zeny has been struggling more with anxiety [...] panic. Assessment & Plan (09/18/2024 8:37 AM KNIFE BLADE POLISHER): Reports that he has been experiencing a [...] to complete the work and stay at [employer]. This led to not doing the work, [...] change. Assessment & Plan (09/04/2024 8:07 AM KNIFE BLADE POLISHER): Zeny reports some anxiety about returning to [...] change. Assessment & Plan (08/14/2024 2:01 PM KNIFE BLADE POLISHER): Zeny reports that he has felt tired [...] conitnued. Assessment & Plan (07/25/2024 11:54 AM KNIFE BLADE POLISHER): Zeny has had a marked increase in anxiety with recent depressive episode. He has been especially distressed about his school work, in spite of his college's reassurances. He is highly anxious about medication changes as well. One reason we opted for adding an SSRI was to address some of his baseline anxiety. Continue to monitor. Assessment & Plan (07/15/2024 10:32 AM KNIFE BLADE POLISHER): Severe anxiety has resolved as depression improved. Over the past week. Will monitor going forward to see if underlying anxiety is less on the combination of Zoloft and Seroquel. Assessment & Plan (07/08/2024 9:21 AM KNIFE BLADE POLISHER): Zeny is expereincing marked anxiety in context [...] to take his drivers test, working on [employer] parking and feeling confident about his abilities. He has not had increase in anxiety since we reduced Seroquel. Will continue to monitor Assessment & Plan (08/14/2023 2:48 PM KNIFE BLADE POLISHER): Zeny had a good experience in [place]. He lived with a family and did ok even though they had different political views. He is making plans to work on his [employer] this year so as not to be [...] In an attempt to exxpress support for [employer] [facility] living and self governance ideals I had explained that although he had some social anxiety and would benefit from building social skills it was the very serious condition of Bipolar 1 that necessitated his need for a single. 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 Sleeping [...] to monitor Bipolar 1 disorder, depressed, severe ([facility]) 04/11/2021 Overview (10/09/2024): suffered his fist manic episode in Oct.e was hospitalized for about 2 weeks at [place] when his parents realized he was floridly [...] He had an information session/interview with a [employer]. Walking regularly. Enjoyed time with family for [...] busier and opportunities to go to the [facility] building.He will engage his grandfather in helping the family support him in his decisions to go back to campus. We agree to increase Lamictal to 150 mg daily with hopes that eventually we will be able to gradually reduce Seroquel Assessment & Plan (11/06/2024 12:00 PM KNIFE BLADE POLISHER): Zeny reports he is doing much better than when we last spoke. 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 Enjoying playing a competitive Q2[employer]anking game with his little brother and mom.His motivation for classes and work are ok. No thoughts of for two weeks. He is still tired but he is sleeping ok. We discuss intermediate card tender treatment plans and immediate treatment plans. Reviewed [...] change Assessment & Plan (10/23/2024 12:14 PM KNIFE BLADE POLISHER): Zeny is struggling. He consents to having [...] job he had hoped for/anticipated getting at [employer], and since then he has been doing [...] your mother that you go to the [facility] emergency room if you are not feeling safe. Another option is the Empath unit at [facility]. The RNs have given your mother information about this in the past. Your family can stay with you at [facility]. The most important part of being in the hospital is to be safe, but it is also possible for the [facility] setting to treat you more aggressively with medication to help you feel better sooner. Another option is to participate in a partial hospital program, your therapist can recommend some I think, and there is also one at [facility], Dr. Medrano is the psychiatrist there and [...] Zeny so that she can be a speici provder touch point well I am on PTO next week. Assessment & Plan (10/09/2024 1:21 PM KNIFE BLADE POLISHER): Zeny has been struggling since late fall [...] this. Assessment & Plan (09/18/2024 8:35 AM KNIFE BLADE POLISHER): Zeny reports that his mood has been more anxious than depressed. He had depressive thoughts on Sunday because he had been so paralyzed by anxiety he felt like a failure, unable to decide what to do. He is sleeping and eating adequately. The last couple days better. He plans to move back to [employer] next weekend.Reports family very supportive. No lethality or psychosis. We agree that we will continue current medication without change. Assessment & Plan (09/04/2024 8:09 AM KNIFE BLADE POLISHER): Zeny reports overall I have been doing pretty well. Mood feels normal, without highs or lows, enjoyed [place] holidays. Engaging with family, starting to do [...] change. Assessment & Plan (08/14/2024 1:54 PM KNIFE BLADE POLISHER): Zeny 's mood has been some what [...] Sep 08. He did speek to an cognos consultant provider over the weekend who increased his [...] mood disorder he experiences the better the intermediate card tender prognosis. At this time we agree to conitnue Seroquel and Zoloft combination and monitor closely. Assessment & Plan (07/25/2024 11:56 AM KNIFE BLADE POLISHER): Zeny and his Mother explained that he [...] change. Assessment & Plan (07/15/2024 10:34 AM KNIFE BLADE POLISHER): Zeny reports he is feeling about 95% [...] this. Notes he was frightened of developing faviola when we tapered Seroquel but he hadn't [...] change. Assessment & Plan (07/08/2024 12:29 PM KNIFE BLADE POLISHER): Zeny and his mother reports that he [...] habits, including walking. I will ask front end assistant to reach out about scheduling therapy appointment. 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 Assessment & Plan (08/14/2023 3:29 PM KNIFE BLADE POLISHER): Zeny continues to do well. He had [...] excellent grades and declared a double major azerbaijani and [employer] science. He will be studying abroad in the fall so will plan to take a 90 day supply of medication with him. We discuss how he can contact me via My Chart with concerns, and the safety plan of reaching out to the Jos prof/ engineering program analyst who is there if necessary as well. [...] change. Assessment & Plan (10/05/2022 8:35 AM KNIFE BLADE POLISHER): Zeny is doing well. He has been [...] made to find some one who needs simva sleep torres. In the mean time xiao is sleeping and eating well. 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 Enjoying spending time with his [...] qhs Assessment & Plan (08/10/2021 2:39 PM KNIFE BLADE POLISHER): Zeny reports he is doing well. He denies sustained highs or lows in his mood. He denies lethality o rpsychosis. He got as and Bs for his first trimester at [employer]. We discussed socialization and importance of healthy [...] stay up late Fridays to watch a [employer] movie but he is starting [employer] soon and connected with role playing club. [...] less dangerous substance of abuse could be( kratom and delta 8 for example.). He will continue Seroquel 100 mg po q am and Seroquel xr 400 mg po q hs at this time and we arranged for follow up video appointments throughout the fall. Encounters Date Type Department Care Team Description 12/13/2024 Documentation Only PSYCHIATRY SERVICE [address] [place] [address] Adele Fraire MD 11/20/2024 8:00 AM CDT Telemedicine [facility] [place] [address] [place] [address] Ene Mariscal, Bipolar 1 disorder, depressed, severe (CMS/HHS) (Primary Dx); Generalized anxiety disorder; High risk medication use Discharge Disposition: Discharged to home or self care 11/10/2024 Telephone [facility] [place] [address] [place] [address] Ute Jama RN 11/08/2024 Telephone [facility] [place] [address] [place] [address] Clint Moeller MD 11/06/2024 11:00 AM [facility] Telemedicine [facility] [place] [address] [place] [address] Ene Mariscal DO High risk medication use (Primary Dx); Bipolar 1 disorder, depressed, severe (CMS/HHS); Generalized anxiety disorder Discharge Disposition: Discharged to home or self care 10/28/2024 9:20 AM KNIFE BLADE POLISHER Telemedicine [facility] [place] [address] [place] [address] Nicole Amador MD Bipolar 1 disorder, depressed, severe (CMS/HHS) (Primary Dx); Generalized anxiety disorder Discharge Disposition: Discharged to home or self care 10/23/2024 10:00 AM KNIFE BLADE POLISHER Telemedicine [facility] [place] [address] [place] [address] Ene Mariscal DO Generalized anxiety disorder (Primary Dx); Bipolar 1 disorder, depressed, severe (CMS/HHS); High risk medication use Discharge Disposition: Discharged to home or self care 10/23/2024 Telephone [facility] [place] [address] [place] [address] Adele Acuna V, marine engineering teacher Problem 10/21/2024 Telephone [facility] [address] [place] [address] Lidia Viramontes RN Patient Status Update; Care Coordination 10/09/2024 11:20 AM [facility] Telemedicine [facility] [place] [address] [place] [address] Ene Mariscal DO Bipolar 1 disorder, depressed, severe (CMS/HHS) (Primary Dx); Generalized anxiety disorder; Needle phobia Discharge Disposition: Discharged to home or self care 10/06/2024 Telephone [facility] [address] [place] [address] Gordon Russo RN 10/03/2024 Telephone [facility] [address] [place] [address] Adele Acuna V RN Resources 10/03/2024 Telephone [facility] [address] [place] [address] Adele Acuna V RN Patient Status Update 09/18/2024 8:20 AM [facility] Telemedicine [facility] [address] [place] [address] Ene Mariscal DO Generalized anxiety disorder (Primary Dx); High risk medication use; Bipolar 1 disorder, depressed, severe (CMS/HHS) Discharge Disposition: Discharged to home or self care from Last 3 Months Social History Tobacco Use Types Packs/Day Years [...] Sexual Orientation Bisexual 07/12/2024 9: 36 AM KNIFE BLADE POLISHER Sexual Orientation Pansexual 07/12/2024 9: 36 AM KNIFE BLADE POLISHER Last Filed Vital Signs Vital Sign Reading [...] Info) Description 12/25/2024 11:20 AM CDT Telemedicine [facility] [place] [address] [place] [address] Ene Mariscal, DO [address] [place] [address] Scheduled Discharge Disposition: Discharged to home or self care Health Maintenance Due Date Last Done Comments Dental Oral Exam 2003 Dental Prophylaxis 2003 Dental X-Ray: Bitewings 2003 Well Child Check 2006 Periodontal Maintenance 2017 HIV Screening 2018 Imm: HPV (1 - Male 3-dose series) 2018 Imm: DTaP/Tdap (1 - Tdap) 2022 Imm: HepB (1 of 3 - 19+ 3-dose series) 2022 Imm: Zoster (1 of 2) 2053 Imm: Flu Completed 07/16/2024 Imm: COVID-19 Completed 08/29/2024, 12/0 12/2022, 09/05/2021, Additional history exists Imm: HepA Aged Out No longer eligi ble based on patient's age to complete this topic Imm: Hib Aged Out No longer eligi ble based on patient's age to complete this topic Imm: Meningitis Aged Out No longer el igible based on patient's age to complete this topic Imm: Pneumonia Peds or At-Risk less than 50 years Aged Out No longer melanie gible based on patient's age to complete this topic Insurance [facility] Care Teams Fruit Preserver Relationship Specialty Start Date End Date Dougie Veras MD [address] [place] [address] PCP - General Internal Medicine 07/31/22 Ene Mariscal DO [address] [place] [id number] Psychiatrist Outpatient Psychiatry 04/20/21
[2024-12-13 18:38] VITALS: BP 142/103; PULSE 119; RESP 18; TEMP 36.7; O2SAT 99
--- NOTE | 2024-12-16 00:42 | ED.NURSE ---
chart accessed to look for PCS form from transfer for EMS crew.
== END 2024-12-13 20:37 | disposition other institution (70) ==
PROVIDERS: Family Medicine; Emergency Provider Student in an Organized Health Care Education/Training Program
DX: R45.851 Suicidal ideations (principal); F32.A Depression, unspecified; Z91.52 Personal history of nonsuicidal self-harm
CPT/HCPCS: 36415; 80048; 80076; 80143; 80179; 80306; 81001; 82077; 83605; 85025; 87086; 99284; 99285; Q3014

== ENCOUNTER 2024-12-13 20:32 | Outpatient (CLI) | payer BC, SELFPAY | END 2024-12-13 20:33 | disposition home or self-care (01) | LOC: AMB 12-25 10:49 | PROVIDERS: Visit Provider Student in an Organized Health Care Education/Training Program | DX: R45.851 Suicidal ideations (principal) | CPT/HCPCS: A0425; A0427 ==

== ENCOUNTER 2025-07-11 10:08 | Emergency (ER) | payer BC, SELFPAY ==
--- OUTSIDE RECORDS SUMMARY | 2025-07-11 10:11 | XMS_ITS | Clinical Summary ---
Author Organization [facility] Address [address] [place] [address] Care Team Providers Care Fig Bar Machine Operator Name Role Phone Elsewhere, Pcp Primary Care Provider Unavailabl e Source Comments Patient records contain information from all sites at [facility]. For routine questions regarding patient records, call [phone] during business hours, M-F 8:00 AM - 5:00 PM Central Time. Record requests for emergency care only can be directed to [phone] at any time.[facility] Allergies Active Allergy Reactions Criticality Noted Date Comments Penicillins Hives only, no other systemic symptoms 12/13/2024 Medications * This document contains information received from the source organization and may not represent a complete record from that organization. QUEtiapine XR (SEROqueL XR) 400 mg 24 hr tablet Take 400 mg by mouth daily. 1 Active fexofenadine (Kathie) 60 mg tablet Take 60 mg by mouth daily. Active fluticasone propionate (Flonase) 50 mcg/actuation nasal spray Administer 2 sprays into each nostril daily. Active QUEtiapine (SEROqueL) 25 mg tablet Take 25 mg by mouth 2 (two) times a day as needed (extreme anxiety). 5 Active lamoTRIgine (LaMICtaL) 200 mg tablet Take 1 tablet (200 mg total) by mouth at bedtime. 30 tablet 5 Active ramelteon (Rozerem) 8 mg tablet Take 1 tablet (8 mg total) by mouth at bedtime as needed for sleep. 10 tablet Active pantoprazole (Protonix) 40 mg EC tablet Take 20 mg by mouth 2 (two) times a day before midday and evening meals. 4 07/09/20 25 Active Problems Problem Noted Date Diagnosed Date Migraine Headache 12/19/2024 Bipolar Disorder Current Episode Depressed Mild Or Moderate 12/17/2024 Depression 12/13/2024 Social History Tobacco Use Types Packs/Day Years Used Date Smoking Tobacco: Never Smokeless Tobacco: Never Tobacco Cessation:Counseling Given: No [facility] Utilities Answer Date Recorded In the past 12 months has e [employer], gas, oil, or water [employer] threatened to shut off services in your home? Yes 12/15/2024 Humiliation, Afraid, Rape, and Kick questionnair e Answer Date Recorded Within the last year, have y ou been afraid of your partner or ex-partner? No 12/15/2024 Within the last year, have y ou been humiliated or emotionally abused in other ways by your partner or ex-partner? No Within the last year, have y ou been kicked, hit, slapped, or otherwise physically hurt by your partner or ex-partner? No 12/15/2024 Within the last year, have y ou been raped or forced to have any kind of sexual activity by your partner or ex-partner? No 12/15/2024 Hunger Vital Sign Answer Date Recorded Within the past 12 months, y ou worried that your food would run out before you got the money to buy more. Never true 12/16/19 25 Within the past 12 months, t he food you bought just didn't last and you didn't have money to get more. Never true 12/15/2024 PRAPARE - Transportation Answer Date Re corded In the past 12 months, has l ack of transportation kept you from medical appointments or from getting medications? No 12/02 In the past 12 months, has l ack of transportation kept you from meetings, work, or from getting things needed for daily living? No 12/15/2024 Depression Answer Date Recor ded PHQ-9 Total Score (max 27) 8 12/19 Housing Stability Answer Date Recorded What is your living situation today? I have a [facility] place to live 12/15/2024 Sex and Gender Information Value Date Recorded Sex Assigned at Not on file Legal Sex Male 3:49 PM CDT Gender Identity Not on file Sexual Orientation Not on file Last Filed Vital Signs Vital Sign Reading Time Taken Comments Blood Pressure 127/77 12/19/2024 7:22 AM CDT Pulse 95 12/19/2024 7:22 AM CDT Temperature 36.2 C (97.2 F) 12/19/2024 7:22 AM CDT Respiratory Rate 18 12/19/2024 7:22 AM CDT Oxygen Saturation 99% 12/19/2024 7:22 AM CDT Inhaled Oxygen Concentration - - Weight 69.5 kg (153 lb 3.5 oz) 12/14/2024 7:51 A M CDT Height 180.3 cm (5' 10.98) 12/14/2024 7:51 AM C DT Body Mass Index 21.38 12/14/2024 7:51 AM CDT Plan of Treatment Health Maintenance Due Date Last Done Comments HIV Screening 2003 Hepatitis C Screening 2003 DTaP,Tdap,and Td Vaccines (7 - Td or Tdap) 05/18/2024 05/18/2014, 07/06/2008, 07/06/2008, Additional history exists Depression Screening (Annual PHQ-2) 09/03/2024 COVID-19 Vaccine ( season) 2025 08/06/2023, 05/22/2022, 09/05/2021, Additional history exists Influenza Vaccine (#1) 2025 , 07/03/2022, 06/01/2021, Additional history exists Glucose Test for Med Monitoring 12/17/2025 12/17/2024, 04/09/2019 Hepatitis B Vaccines Completed 07/20/2004, 2003, 2003 Pneumococcal vaccine (0-49 years) Aged Out 07/20/2004, 2003, 2003, Additional history exists No longer eligible based on patient's age to complete this topic IPV Vaccines Completed 05/17/2007, 10/05, 2003, Additional history exists HPV Vaccines Completed 10/12/2017, 05/18/2014 Meningococcal Vaccine Completed 04/11/2021, 014 Procedures Procedure Name Priority Date/Time Associated Diagnosis Comments COMPREHENSIVE METABOLIC PANEL, S/P Routine 12/17/2024 7:10 PM CDT from Last 3 Months or Most Recently Relevant to Health Maintenance Results * Comprehensive Metabolic Panel (12/17/2024 7:10 PM CDT) Potassium, P 3.9 3.6 - 5.2 mmol/L 12/17/2024 7:34 PM CDT MKTO Sodium, P 140 135 - 145 mmol/L 12/17/2024 7:34 PM CDT MKTO Chloride, P 102 98 - 107 mmol/L 12/17/2024 7:34 PM CDT MKTO Bicarbonate, P 25 22 - 29 mmol/L 12/17/2024 7:34 PM CDT MKTO Anion Gap, P 13 7 - 15 12/17/2024 7:34 PM CDT MKTO BUN (Blood Urea Nitrogen), P 18 8 - 24 mg/dL 12/17/2024 7:34 PM CDT MKTO Creatinine 0.94 0.74 - 1.35 mg/dL 12/17/2024 7:34 PM CDT MKTO Estimated GFR (eGFR) >90 >=60 mL/min/BS A 12/17/2024 7:34 PM CDT MKTO Comment: Estimated GFR calculated using the 2020 CKD_EPI creatinine equation. Calcium, Total, P 9.1 8.6 - 10.0 mg/dL 12/17/2024 7:34 PM CDT MKTO Glucose, P 107 70 - 140 mg/dL 12/17/2024 7:34 PM CDT MKTO Protein, Total, P 7.6 6.3 - 7.9 g/dL 12/17/2024 7:34 PM CDT MKTO Albumin, P 4.8 3.5 - 5.0 g/dL 12/17/2024 7:34 PM CDT MKTO Aspartate Aminotransferase (AST), P 21 8 - 48 U/L 12/17/2024 7:48 PM CDT MKTO Alkaline Phosphatase, P 74 40 - 129 U/L 12/17/2024 7:34 PM CDT MKTO Alanine Aminotransferase (ALT), P 10 7 - 55 U/L 12/17/2024 7:34 PM CDT MKTO Bilirubin, Total, P 0.5 0.0 - 1.2 mg/dL 12/17/2024 7:34 PM CDT MKTO Blood (Blood, Venous) 12/17/2024 7:10 PM CDT 12/17/2024 7:13 PM CDT Stephania Ashraf LAB BLOOD ADD-ON Final Result [facility] [address] [place] [address], [facility] MKTO [facility] [place] [address] [place] [address] from Last 3 Months or Most Recently Relevant to Health Maintenance Insurance [facility] Advance Directives For more information, please contact: [phone] * Full Code (Latest Code Status on File) Date Activated Date Inactivated Comments 12/13/2024 11:02 PM 12/19/2024 8:45 PM Question Answer Comments Full Code: Not Discussed Due to: Not medically appropriate Care Teams Fig Bar Machine Operator Relationship Specialty Start Date End Date Elsewhere, Pcp PCP - General Internal Medicine 12/13/24
--- OUTSIDE RECORDS SUMMARY | 2025-07-11 10:11 | XMS_ITS | Clinical Summary ---
Author Organization [facility] Address [address] [facility] [place] [address] Care Team Providers Care Talent Development Specialist Name Role Phone Ady Hood MD Primary Care Provider [phone] Allergies Active Allergy Reactions Criticality Noted Date [...] Bipolar I disorder 04/11/2021 Manic behavior 10/18/2020 Immunizations Immunization Administration Dates Next Due COVID-19 MONOVALENT 12+ (Pfizer) 03/04/2021,02/01 DTAP (<7y) 07/06/2008, 4,2003,08/17,2003 DTaP, Unspecified 07/06/2008, 4,2003,08/17,2003 Flu, Unspecified 06/22/2007,06/23/2006, 4 Flu-nasal, Unspecified 06/13/2011,05/25/2009 [id number] Novel Flu- Nasal 08/11/2009 HIB(PRP-OMP)(PedvaxHIB) 07/20/2004,2003, HIB, [...] place to sleep or slept in a care home (including now)? 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 Gender Identity Not on file Sexual Orientation Not on file Last Filed Vital Signs Vital Sign Reading Time Taken Comments Blood Pressure 113/78 04/11/2021 8:43 AM CDT Pulse 100 04/11/2021 8:43 AM CDT Temperature 36.8 C (98.2 F) 10/28/2020 8:24 AM MAINTENANCE MECHANIC SUPERVISOR Respiratory Rate 16 10/28/2020 8:24 AM MAINTENANCE MECHANIC SUPERVISOR Oxygen Saturation 99% 04/11/2021 8:43 AM CDT Inhaled Oxygen Concentration - - Weight 58.1 kg (128 lb) 04/11/2021 8:43 AM CDT Height 181.6 cm (5' 11.5) 04/11/2021 8:43 AM CD T Body Mass Index 17.6 04/11/2021 8:43 AM CDT Plan of Treatment Not on file Insurance [employer] Advance Directives For more information, please contact: [phone] * Full Code (Latest Code Status on File) Date Activated Date Inactivated Comments 10/26/2020 9:22 AM 10/28/2020 6:39 PM All basic an d advanced life-sustaining interventions are performed as appropriate Question Answer Comments Code status determined by: Discussion with robert nt/ legal decision maker * Full Code [...] 8:58 PM 10/21/2020 9:50 AM All basic a nd advanced life-sustaining interventions are performed as appropriate Question Answer Comments Code status determined by: Unable to det ermine; FULL CODE until documents or legal decision maker available Care Teams Talent Development Specialist Relationship Specialty Start Date End Date Ady Hood MD PCP - General Pediatrics 10/15/20
--- OUTSIDE RECORDS SUMMARY | 2025-07-11 10:11 | XMS_ITS | Clinical Summary ---
[facility] Address [address] [place] [address] Care Team Providers Care Corporate Fitness Program Coordinator Name Role Phone Gordon Eaton MD Primary Care Provider [phone] Source Comments You are receiving this document as you are listed as the primary care provider,follow-up provider, or the patient has been referred to you for consultation.This is in compliance with the Medicare and[employer] Health[employer] EHR Incentive Program,which states Providers who transition their patient to another setting of careor provider of care or refers their patient to another provider of care shouldprovide summary care record for each transition of care or referral. [facility] Allergies Active Allergy Reactions Criticality Noted Date [...] day before meals. 180 Tablet 3 4 Active Active Problems Problem Noted Date Diagnosed [...] Please see Epic for most recent results. Last Assessment & [...] was hospitalized for about 2 weeks at [facility] when his parents realized he was floridly [...] 5 Flu Vac Preserv Free (3+yrs) 06/29/2004 [id number] 09/22/2009 [id number] Laiv Medimmune 2-49 Yr (Intranasal) 08/11/2009 HepA Adult (19+ yrs) 07/06/2008,05/17/2007 HepA, Unspecified Formulation 07/06/2008, 007 HepB Adult (Engerix-B, 20+ y rs, 3 dose series) 07/20/2004,2003,2003 HepB, Unspecified Formulation 07/20/2004, 003,2003 Hib (PedvaxHIB) 07/20/2004,2003,2003 Hib, Unspecified Formulation 07/20/2004,08/17/20 03,2003 IPV (Polio) 05/17/2007, 4,2003,2002 Influenza ([place] Only) (Flul aval Quad 0.5, 3+ yrs) 06/27/2019,10/12/2017 Influenza (LAIV), Unspecified 06/13/2011, 009 Influenza IIV4 (Quadrivalent ) 0.5mL ([id number]) 08/13/2023,06/23/2006,06/29/2004 Influenza LAIV (Nasal, 2-49 yrs) 022,06/01/2021,05/18/2020,2017,06/25/2015,05/18/2014 Influenza LAIV3 2-49 years (Flumist) ,06/13/2011,05/25/2009,2007 Influenza, Unspecified Formulation 06/22/2007,,06/29/2004 MCV4 (Menactra) 04/11/2021,05/18/2014 MCV4 Menveo 2m.+ (two vial) 05/18/2014 MMR 07/06/2008,05/16/2004 Moderna Bivalent 12+ 05/22/2022 Pfizer COVID-19 12+ (Comirnaty) 08/06/2023 Pfizer Monovalent 12+ Purple Top 09/05/2021,07/0 [...] Uncle Nasim Sockalosky Diabetes Paternal Grandfather Paco Fentongyel Cancer Paternal Grandmother Brandee Eliceogyel Cancer, Breast Paternal Grandmother Brandeemario Fentongyel Relation Name Status Comments Father Abimael Jean [...] on file Legal Sex Male 8:07 AM TRANSACTION COORDINATOR Gender Identity Not on file Sexual Orientation Not on file Last Filed Vital Signs Vital Sign Reading Time Taken Comments Blood Pressure 139/81 08/08/2022 4:02 PM TRANSACTION COORDINATOR Pulse 104 08/08/2022 4:02 PM TRANSACTION COORDINATOR Temperature 36.6 C (97.8 F) 08/08/2022 4:02 PM TRANSACTION COORDINATOR Respiratory Rate 16 08/08/2022 4:02 PM TRANSACTION COORDINATOR Oxygen Saturation 99% 08/08/2022 4:02 PM TRANSACTION COORDINATOR Inhaled Oxygen Concentration - - Weight 65.1 kg (143 lb 8 oz) 12/31/2023 9:49 AM CDT pt reported Height 181 cm (5' 11.25) 08/08/2022 4:02 PM TRANSACTION COORDINATOR Body Mass Index 19.87 08/08/2022 4:02 PM TRANSACTION COORDINATOR Plan of Treatment Health Maintenance Due Date Last Done Comments Hep C Screening (Preventive Services) 2003 HIV Screening (Preventive Services) 2019 Adult Preventive Visit 08/08/2023 08/08/2022 DTaP/Tdap/Td Vaccine (7 - Tdap) 05/18/2024 05/18/2014, 07/06/2008, 07/06/2008, Additional history exists COVID-19 Vaccine ( season) 2025 08/06/2023, 05/22/2022, 09/05/2021, Additional history exists Influenza Vaccine (#1) 2025 , 07/03/2022, 06/01/2021, Additional history exists Zoster/Shingles Vaccine (1 of 2) 2053 HepB Vaccine Completed 07/20/2004, 07/04, 2003, Additional history exists Hib Vaccine Completed 07/20/2004, 07/04, 2003, Additional history exists Pneumococcal Vaccine Aged Out 07/20/2004, 2003, 2003, Additional history exists No longer eligible based on patient's age to complete this topic IPV (Polio) Vaccine Completed 05/17/2007, 2003, 2003, Additional history exists HepA Vaccine Completed 07/06/2008, 11/2007, 05/17/2007, Additional history exists Varicella Vaccine Completed 07/06/2008, 02/09/2005 HPV Vaccine Completed 10/12/2017, 05/18/2014 MCV4 Vaccine Completed 04/11/2021, 05/04, 05/18/2014 Meningococcal B Vaccine Completed 08/08/2021, 04/11 Insurance [facility] Care Teams Corporate Fitness Program Coordinator Relationship Specialty Start Date End Date Gordon Eaton MD [address] [place] [address] PCP - General 01/15/25
--- OUTSIDE RECORDS SUMMARY | 2025-07-11 10:11 | XMS_ITS | Encounter Summary ---
Author Organization [facility] Address [address] [place] [address] Care Team Providers Care Plant Protection Guard Name Role Phone Elsewhere, Pcp Primary Care Provider Unavailabl e Encounter Details Date Type Department Care Team (Latest Contact Info) Description 12/13/2024 Intake [facility] Social History Tobacco Use Types Packs/Day Years Used Date Smoking Tobacco: Never Smokeless Tobacco: Never [facility] Utilities Answer Date Recorded In the past 12 months has [facility] electric, gas, oil, or water [employer] threatened to shut off services in your [...] your living situation today? I have a [facility] place to live 12/15/2024 Sex and Gender Information Value Date Recorded Sex Assigned at Not on file Legal Sex Male 3:49 PM CDT Gender Identity Not on file Sexual Orientation Not on file documented as of this encounter Plan of Treatment Not on file documented as of this encounter Visit Diagnoses Not on filedocumented in this encounter Care Teams Plant Protection Guard Relationship Specialty Start Date End Date Elsewhere, Pcp PCP - General Internal Medicine 12/13/24 documented as of this encounter
--- OUTSIDE RECORDS SUMMARY | 2025-07-11 10:11 | XMS_ITS | Encounter Summary ---
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
--- OUTSIDE RECORDS SUMMARY | 2025-07-11 10:12 | XMS_ITS | Encounter Summary ---
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
[2025-07-11 10:19] VITALS: BP 151/84; PULSE 96; RESP 20; TEMP 37; O2SAT 98; BMI 20.9
--- NOTE | 2025-07-11 11:51 | ED.GENADULT ---
HPI - General Adult General Chief complaint: Headache/Migraine Stated complaint: migraine Time Seen by Provider: 07/11/25 11:41 History of Present Illness HPI narrative: Patient is a 20-year-old gentleman who with a chronic headache disorder. He has had headache for the most part of 19 days. This did follow his COVID and flu shot. He has rizatriptan at home and has been taking at least 2 times during this event. He has been in communication with his neurologist. Ice had extensive workup including MRI and CT scan in the past. He has no new focal neurologic symptoms is headache is global and I does have some photophobia. He was told to follow-up in the emergency room for an infusion help break his headache cycle. Related Data Home Medications ?Medication ?Instructions ?Recorded ?Confirmed pantoprazole 40 mg tablet,delayed 40 mg PO BID 12/13/24 07/11/25 release lithium carbonate 300 mg tablet 900 mg PO QPM 07/11/25 07/11/25 rizatriptan 10 mg tablet See Rx Instructions PO .COMPLEX PRN 07/11/25 07/11/25 Allergies Allergy/AdvReac Type Severity Reaction Status Date / Time Penicillins Allergy Mild Hives Verified 07/11/25 10:29 adhesive tape Allergy Rash Verified 07/11/25 10:29 Review of Systems Status of ROS: Reports: 10 or more systems reviewed and unremarkable except as noted in History and below Exam Narrative: Exam Narrative: EXAM GENERAL: Patient appears comfortable and well. EYES: No scleral icterus. LYMPH: No supraclavicular or cervical lymphadenopathy. SKIN: Visible skin seen during exam normal or with benign process only. EXT: No dependent lower extremity pedal edema. HEART: Regular rate and rhythm with no murmurs, rubs, or gallops. LUNGS: Clear to auscultation bilaterally with no crackles or wheezes. ABD: Soft, non tender, non distended. PSYCH: Good eye contact, speech is not pressured. Neurologic cranial nerves 2-12 grossly intact no focal defects. Const: Vital Signs, click to edit/add: Vital Signs - 24 hr 07/11/25 10:19 Temperature 98.6 F Pulse Rate [Pulse Oximeter] 96 Respiratory Rate 20 Blood Pressure [Ri ght Upper Arm] 151/84 H Pulse Oximetry 98 Course Course ED Course: Patient seen and examined. Will follow neurology's recommendations and infuse 1 L of normal saline 4 mg of Zofran 30 mg of Toradol and 25 mg of Benadryl. Patient will be discharged to home to continue his outpatient regimen with close follow-up with his neurologist. Vital Signs Vital signs: Initial Vital Signs Temperature 98.6 F 07/11/25 10:19 Temperature Source Oral 07/11/25 10:19 Pulse Rate 96 07/11/25 10:19 Pulse Rhythm Regular 07/11/25 10:19 Respiratory Rate 20 07/11/25 10:19 Blood Pressure 151/84 H 07/11/25 10:19 Blood Pressure Mean 106 H 07/11/25 10:19 Blood Pressure Position Sitting 07/11/25 10:19 Pulse Oximetry 98 07/11/25 10:19 Vital Signs Temperature 98.6 F 07/11/25 10:19 Pulse Rate 96 07/11/25 10:19 Respiratory Rate 20 07/11/25 10:19 Blood Pressure 151/84 H 07/11/25 10:19 Pulse Oximetry 98 07/11/25 10:19 Temperature 98.6 F 07/11/25 10:19 Pulse Rate 96 07/11/25 10:19 Respiratory Rate 20 07/11/25 10:19 Blood Pressure 151/84 H 07/11/25 10:19 Pulse Oximetry 98 07/11/25 10:19 Discharge Plan Discharge Clinical Impression: Headache Patient Disposition: Home, Self-Care Condition: Stable Instructions: Acute Headache (ED) Additional Instructions: Rest Fluids Continue outpatient medication Follow-up with your neurologist by phone this week. Activity Level: No Restrictions Discharge Diet: Regular Prescriptions: No Action pantoprazole 40 mg tablet,delayed release (DR/EC) 40 mg PO BID rizatriptan 10 mg tablet See Rx Instructions PO .COMPLEX PRN Rx Instructions: orally PRN; lithium carbonate 300 mg tablet 900 mg PO QPM Follow Up/Referrals: Provider,Not a Local [Primary Care Provider, Family Practice] Stand Alone Forms: [employer] Info Instructions
[2025-07-11] MEDS: ONDANSETRON 2 MG/ML inj 4 MG IVP (12:08)
[2025-07-11 13:02] LABS: Hematocrit* 41.4 % (37.0-53.0); Hemoglobin* 13.8 gm/dL (13.5-17.5); Immature Granulocytes Abs Auto 0.01 K/uL (0.00-0.30); Immature Granulocytes Pct Auto 0.1 %; Lymphocytes Absolute Auto 1.98 K/uL (0.90-2.90); Mean Corpuscular HGB Conc 33 gm/dL (32-36); Mean Corpuscular Hemoglobin 30 pg (26-34); Mean Corpuscular Volume 89 fL (80-100); RDW Coefficient of Variation % 11.5 % (11.5-15.5); Red Blood Count* 4.64 m/uL (4.30-5.90); White Blood Count* 6.85 K/uL (4.50-11.00)
[2025-07-11 13:06] LABS: Slide Review Reflex No
[2025-07-11 13:15] LABS: Albumin* 3.8 g/dL (3.3-5.0); Chloride* 104 mmol/L (96-114); Potassium* 3.9 mmol/L (3.6-5.1); Sodium* 139 mmol/L (135-149)
[2025-07-11 13:18] LABS: Alanine Aminotransferase* 20 U/L (4-50); Alkaline Phosphatase* 50 U/L (40-150); Anion Gap 9 mEq/L (7-15); Aspartate Amino Transferase* 21 U/L (12-35); Bilirubin Total* 0.3 mg/dL (0.1-1.5); Blood Urea Nitrogen* 9 mg/dL (5-24); Carbon Dioxide* 26 mmol/L (20-32); Creatinine* 0.8 mg/dL (0.5-1.5); Est. Creatinine Clearance* 139.39; Estimated Glomerular Filt Rate 128 ml/min; Total Protein* 6.2 g/dL (6.0-8.3)
[2025-07-11 13:19] LABS: Calcium* 8.5 mg/dL (8.4-10.6); Glucose* 102 mg/dL (60-115)
== END 2025-07-11 12:57 | disposition home or self-care (01) ==
LOC: ED 11:57
PROVIDERS: Emergency Provider Internal Medicine
DX: R51.9 Headache, unspecified (principal)
CPT/HCPCS: 36415; 80053; 85025; 96374; 96375; 99283; 99284; J1200; J1885; J2405; J7030